=== PATIENT | female | born 1970 | race Caucasian/White ===

== ENCOUNTER 2020-05-30 10:12 | Emergency (ER) | payer OTHER, SELFPAY ==
[2020-05-30 10:19] VITALS: BP 115/68; PULSE 90; RESP 14; TEMP 36.6; O2SAT 98; BMI 20.2
[2020-05-30 10:49] LABS: Basophils Percent Auto 0.9 % (0-2); Eosinophils Absolute Auto 0.1 X10*3/uL (0.0-0.4); Hematocrit 34.5 % (37-47); Hemoglobin 12.1 g/dl (12.0-16.0); MANUAL DIFF FLAG NO; Mean Corpuscular HGB Conc 35.1 g/dl (31.0-35.0); Mean Corpuscular Hemoglobin 32.4 pg (27.0-33.0); Mean Corpuscular Volume 92.5 fL (80-98); Mean Platelet Volume 10.6 fL (9.4-12.3); Monocytes Absolute Auto 0.2 X10*3/uL (0.1-1.2); Monocytes Percent Auto 6.9 % (2-11); Neutrophils Absolute Auto 1.1 X10*3/uL (2.0-8.3); Neutrophils Percent Auto 31.2 % (45-73); Platelet Count 182 X10*3/uL (160-400); Red Blood Count 3.73 X10*6/uL (4.20-5.50); Red Cell Distribution Width 12.2 % (11.0-16.0); White Blood Count 3.5 X10*3/uL (4.8-10.8)
--- NOTE | 2020-05-30 10:51 | ED.CHESTPAIN ---
HPI - Chest Pain General Chief Complaint: Chest Pain Stated Complaint: chest pain Time Seen by Provider: 05/30/20 10:27 Source: patient Mode of arrival: ambulatory Limitations: no limitations History of Present Illness HPI narrative: 49-year-old female who presents emergency department for evaluation of sudden onset of chest pain. The patient states she was making breakfast this morning at 9:30 a.m. when she had a sudden onset of midsternal chest pain. She points to his sternum when asked to localize pain. She describes the pain as a constant heaviness/tightness which waxes and wanes in intensity. She states the pain was 9/10 at its worst. She denied shortness of breath, lightheadedness, dizziness, diaphoresis, nausea or vomiting associated with the chest pain. She denied dyspnea on exertion. She states the pain persisted and was getting worse before she came to the emergency department for evaluation. She denies any pain or swelling in her lower extremities. She denies any recent travel. She states that she takes a natural oral supplement called Estroven which is a herbal estrogen. She works at [employer] but does not have any known COVID exposures. She denied COVID symptoms such as fever, chills, myalgias, arthralgias, cough, diarrhea, loss of bowel or bladder control. Related Data Allergies Allergy/AdvReac Type Severity Reaction Status Date / Time amitriptyline [From ELAVIL] Allergy Unknown UNKNOWN Unverified 02/19/20 16:06 bupropion [From WELLBUTRIN] Allergy Unknown VISION Unverified 02/19/20 16:06 ISSUES clonidine Allergy Unknown DIFF Unverified 02/19/20 16:06 BREATHING cyclobenzaprine Allergy Unknown DRIES HER Unverified 02/19/20 16:06 [From FLEXERIL] OUT promethazine [From PHENERGAN] Allergy Unknown INVOLUNTARY Unverified 02/19/20 16:06 MOVEMENT topiramate [From TOPAMAX] Allergy Unknown ITCHINESS Unverified 02/19/20 16:06 trazodone [TRAZODONE] Allergy Unknown DRIES HER Unverified 02/19/20 16:06 OUT paroxetine AdvReac Unknown SEVERE Unverified 02/19/20 16:06 ANXIETY Review of Systems Review of Systems: Yes all other systems are reviewed and are negative Constitutional: Constitutional: Reports as per HPI Eyes: Eyes: Reports as per HPI ENT: Reports as per HPI Cardiovascular: Cardiovascular: Reports as per HPI Respiratory: Respiratory: Reports as per HPI Gastrointestinal: Gastrointestinal: Reports as per HPI Genitourinary: Genitourinary: Reports as per HPI Musculoskeletal: Musculoskeletal: Reports as per HPI Integumentary/Breasts: Skin/Breast: Reports as per HPI Neurologic: Reports as per HPI and Reports Abnormal speech present Psychiatric: Psychiatric: Reports as per HPI Allergic/Immunologic: Allergic/Immunologic: Reports as per HPI [facility] Past Medical History Attestation statement: The following information was validated with the patient. [facility] Narrative: The patient has a history of anxiety, Sjogren syndrome, arthritis, hyperlipidemia. The patient does smoke cigarettes 1/2 pack of cigarettes for greater than 35 years, she drinks alcohol occasionally. 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 Social History Social History Alcohol intake: never Smoking Status: Never smoker Use of substances other than those prescribed or required for medical reasons: No Advance Directives: No Advance Directives Information Provided: No Physical Exam Vital Signs: Vital Signs: Last Vital Signs Temp 98.3 F 05/30/20 16:10 Pulse 69 05/30/20 16:10 Resp 16 05/30/20 16:10 BP 110/62 05/30/20 16:10 Pulse Ox 99 05/30/20 16:10 Body Mass Index 20.2 Const: General: cooperative Nutritional Appearance: thin Orientation/consciousness: oriented to person and oriented to place Limitations: no limitations HENMT: Head: Yes normal to inspection, Yes normocephalic and Yes atraumatic Ears: external ears normal General nose exam: Normal external nose present Face and sinus: Yes normal facial exam Mouth: Normal oral and palatal mucosa present Throat: Yes posterior oropharynx normal Eyes: General: appearance normal, both eyes and all related structures Alignment and Position: alignment normal Periorbital: periorbital findings normal Eyelids: Yes eyelids normal Conjunctivae: conjunctivae normal Sclerae: sclerae normal Pupils: Equal, round and reactive pupils present Direct Ophthalmoscopy: normal light reflex Neck: Neck: Yes normal visual inspection and Yes supple Thyroid: Thyroid normal Chest: Chest palpation & inspection: normal inspection of the chest and normal palpation of entire chest wall Resp: Effort & Inspection: normal respiratory effort and able to speak in complete sentences Auscultation: clear to auscultation bilaterally, no crackles, no rales and no rhonchi Cardio: Rate: regular rate Rhythm: regular rhythm Heart sounds: S1 normal heart sound present, S2 normal heart sound present and no murmurs GI: Inspection: Yes normal to inspection Palpation (GI): Soft to palpation, nontender and no guarding Auscultation: normal bowel sounds : General: Yes no CVA tenderness Back/Spine/Pelvis: Back: no CVA tenderness Cervical Spine: normal cervical lordosis Thoracic/Lumbar Spine: thoracic and lumbar spine normal to inspection Skin: General skin exam: no rashes or lesions noted Lesions: no lesions Rashes: no rashes Trauma: no lacerations or abrasions Neuro: General: oriented to person and oriented to place Cranial nerves: Yes CN's II-XII intact bilaterally and Yes Equal, round and reactive pupils present Cognition (Neuro): normal cognition Speech: Abnormal speech present Motor exam (neuro): 5/5 motor strength present throughout Extrem: General: Yes normal to inspection Psych: Appearance: grossly normal and well kempt Mental Status: mental status grossly normal Speech and movement: Normal speech and movement present Affect: Other affect and mood findings present (Anxious) Attitude: cooperative Thought process: Normal thought process present Thought content: Normal thought content present Insight: Good insight present (Psych) Judgement: Good judgement present (Psych) Course Course Course Narrative: 49-year-old female with a history of hyperlipidemia, arthritis troponin syndrome and anxiety who presents emergency department for evaluation of sudden onset chest pain which started at 9:30 a.m.. The patient is taking an herbal estrogen supplement and does smoke cigarettes. The differential includes but is not limited to coronary artery disease, costochondritis, pulmonary embolism, COVID-19. I did order a cardiac workup to include troponin now and a 3 hour troponin, D-dimer and chest x-ray. Twelve lead EKG revealed no acute ischemia or myocardial injury pattern. 1622: The patient's laboratory evaluation revealed a normal D-dimer and normal initial and 3 hour troponin. Chest x-ray was unremarkable. The patient did get significant improvement with IV Toradol and IV Ativan. At this time I believe the patient's pain is consistent with costochondritis/pleuritic pain and I did discuss this with the patient. Patient will be discharged home and advised to take ibuprofen and Tylenol for pain. MDM - Chest Pain Lab Data Result diagrams: 05/30/20 10:42 05/30/20 13:23 Labs: Lab Results 05/30/20 05/30/20 05/30/20 Range/Units 10:41 10:42 10:42 WBC 3.5 L (4.8-10.8) X10*3/uL RBC 3.73 L (4.20-5.50) X10*6/uL Hgb 12.1 (12.0-16.0) g/dl Hct 34.5 L (37-47) % MCV 92.5 (80-98) fL MCH 32.4 (27.0-33.0) pg MCHC 35.1 H (31.0-35.0) g/dl RDW 12.2 (11.0-16.0) % Plt Count 182 (160-400) X10*3/uL MPV 10.6 (9.4-12.3) fL Immature Gran % (Auto) 0.0 (0.0-0.4) % Neut % (Auto) 31.2 L (45-73) % Lymph % (Auto) 57.0 H (20-40) % [place] % (Auto) 6.9 (2-11) % Eos % (Auto) 4.0 (0-4) % Baso % (Auto) 0.9 (0-2) % Lymph # (Auto) 2.0 (1.2-4.9) X10*3/uL [place] # (Auto) 0.2 (0.1-1.2) X10*3/uL Eos # (Auto) 0.1 (0.0-0.4) X10*3/uL Baso # (Auto) 0.0 (0.0-0.2) X10*3/uL Abs Immat Gran (auto) 0.00 (0.00-0.03) X10*3/uL Absolute Neuts (auto) 1.1 L (2.0-8.3) X10*3/uL Absolute Nucleated RBC 0.000 (0.0-0.012) X10*3/uL Nucleated RBC % (auto) 0.0 (0.0-0.2) /100WBC PT (10.8-13.0) SEC INR (0.9-1.1) APTT (24.1-38.0) SEC D-Dimer NG/ML Hold Blue Top SEE NOTE Sodium Potassium Chloride Carbon Dioxide Anion Gap BUN Creatinine Estim Creat Clear Calc Estimated GFR Random Glucose Calcium Total Bilirubin (0.0-1.0) mg/dL Direct Bilirubin (0.0-0.5) mg/dL AST (5-31) U/L ALT (0-31) U/L Alkaline Phosphatase (39-117) U/L Troponin I High Sens < 3.5 (<3.5-17.0) ng/L Total Protein (6.5-8.0) g/dL Albumin (3.5-5.0) g/dL COVID-19 (BILLIE) (Negative) COVID-19 Clin Com 05/30/20 05/30/20 05/30/20 Range/Units 10:42 13:23 13:23 WBC (4.8-10.8) X10*3/uL RBC (4.20-5.50) X10*6/uL Hgb (12.0-16.0) g/dl Hct (37-47) % MCV (80-98) fL MCH (27.0-33.0) pg MCHC (31.0-35.0) g/dl RDW (11.0-16.0) % Plt Count (160-400) X10*3/uL MPV (9.4-12.3) fL Immature Gran % (Auto) (0.0-0.4) % Neut % (Auto) (45-73) % Lymph % (Auto) (20-40) % Lar[place] % (Auto) (2-11) % Eos % (Auto) (0-4) % Baso % (Auto) (0-2) % Lymph # (Auto) (1.2-4.9) X10*3/uL [place] # (Auto) (0.1-1.2) X10*3/uL Eos # (Auto) (0.0-0.4) X10*3/uL Baso # (Auto) (0.0-0.2) X10*3/uL Abs Immat Gran (auto) (0.00-0.03) X10*3/uL Absolute Neuts (auto) (2.0-8.3) X10*3/uL Absolute Nucleated RBC (0.0-0.012) X10*3/uL Nucleated RBC % (auto) (0.0-0.2) /100WBC PT 12.4 (10.8-13.0) SEC INR 1.0 (0.9-1.1) APTT 36.8 (24.1-38.0) SEC D-Dimer < 200 NG/ML Hold Blue Top Sodium Cancelled Potassium Cancelled Chloride Cancelled Carbon Dioxide Cancelled Anion Gap Cancelled BUN Cancelled Creatinine Cancelled Estim Creat Clear Calc Cancelled Estimated GFR Cancelled Random Glucose Cancelled Calcium Cancelled Total Bilirubin (0.0-1.0) mg/dL Direct Bilirubin (0.0-0.5) mg/dL AST (5-31) U/L ALT (0-31) U/L Alkaline Phosphatase (39-117) U/L Troponin I High Sens (<3.5-17.0) ng/L Total Protein (6.5-8.0) g/dL Albumin (3.5-5.0) g/dL COVID-19 (BILLIE) Negative (Negative) COVID-19 Clin Com See Note 05/30/20 05/30/20 Range/Units 13:23 14:58 WBC (4.8-10.8) X10*3/uL RBC (4.20-5.50) X10*6/uL Hgb (12.0-16.0) g/dl Hct (37-47) % MCV (80-98) fL MCH (27.0-33.0) pg MCHC (31.0-35.0) g/dl RDW (11.0-16.0) % Plt Count (160-400) X10*3/uL MPV (9.4-12.3) fL Immature Gran % (Auto) (0.0-0.4) % Neut % (Auto) (45-73) % Lymph % (Auto) (20-40) % [place] % (Auto) (2-11) % Eos % (Auto) (0-4) % Baso % (Auto) (0-2) % Lymph # (Auto) (1.2-4.9) X10*3/uL [place] # (Auto) (0.1-1.2) X10*3/uL Eos # (Auto) (0.0-0.4) X10*3/uL Baso # (Auto) (0.0-0.2) X10*3/uL Abs Immat Gran (auto) (0.00-0.03) X10*3/uL Absolute Neuts (auto) (2.0-8.3) X10*3/uL Absolute Nucleated RBC (0.0-0.012) X10*3/uL Nucleated RBC % (auto) (0.0-0.2) /100WBC PT (10.8-13.0) SEC INR (0.9-1.1) APTT (24.1-38.0) SEC D-Dimer NG/ML Hold Blue Top Sodium 141 Potassium 4.7 Chloride 106 Carbon Dioxide 29 Anion Gap 11 L BUN 8 L Creatinine 0.76 Estim Creat Clear Calc 62.9 Estimated GFR > 60 Random Glucose 82 Calcium 8.6 Total Bilirubin 0.2 (0.0-1.0) mg/dL Direct Bilirubin < 0.2 (0.0-0.5) mg/dL AST 17 (5-31) U/L ALT 12 (0-31) U/L Alkaline Phosphatase 34 L (39-117) U/L Troponin I High Sens < 3.5 (<3.5-17.0) ng/L Total Protein 6.3 L (6.5-8.0) g/dL Albumin 3.9 (3.5-5.0) g/dL COVID-19 ([facility]IE) (Negative) COVID-19 Clin Com Discharge Plan Discharge Clinical Impression: Chest pain, Acute costochondritis Patient Disposition: Home, Self-Care Instructions: Costochondritis (ED) Additional Instructions: Your laboratory evaluation was normal. You chest x-ray was normal. Your pain is most likely caused by inflammation of the chest. This is called costochondritis. This is treated with anti-inflammatory medications such as ibuprofen. Take ibuprofen 200 mg pills, 3 pills every 6 hours as needed for pain. Take Tylenol (acetaminophen) 500 mg pills, 2 pills every 4 to 6 hours as needed for pain. Please return to the emergency department if her symptoms get worse or if you develop any new symptoms that are concerning to you. Follow-up with your doctor in 2 days. Referrals: Marie Ramires DO [Primary Care Provider] - 2 days
--- NOTE | 2020-05-30 11:03 | XR_ITS ---
EXAMINATION: XR CHEST CLINICAL INFORMATION: Sudden onset of shortness of breath COMPARISON: None TECHNIQUE: 2 views of the chest were obtained. FINDINGS: The lungs are well-expanded with slight prominence of bilateral interstitial markings but no confluent infiltrate upper effusion. The heart size and pulmonary vascularity is normal. No gross bony abnormality seen. XR/XR chest 2V IMPRESSION: Prominence of interstitial markings but no acute pneumonic process seen.
[2020-05-30 11:27] LABS: Troponin-I High Sensitivity < 3.5 ng/L (<3.5-17.0)
[2020-05-30] MEDS: LORazepam 2 MG/ML VIAL 0.5 MG IVPUSH (11:39)
[2020-05-30] MEDS: Ketorolac Tromethamine 15 MG/ML VIAL 30 MG IV (11:39)
[2020-05-30 13:25] VITALS: BP 118/71; PULSE 68; RESP 16; TEMP 36.6; O2SAT 100
[2020-05-30 13:40] LABS: Prothrombin Time 12.4 SEC (10.8-13.0)
[2020-05-30 13:43] LABS: Partial Thromboplastin Time 36.8 SEC (24.1-38.0)
[2020-05-30 13:47] LABS: D Dimer < 200 NG/ML
[2020-05-30 13:51] LABS: COVID-19 Test Negative (Negative); IDNOW Serial# 9DD0AD1C
[2020-05-30 14:00] LABS: Alanine Aminotransferase 12 U/L (0-31); Albumin Level 3.9 g/dL (3.5-5.0); Alkaline Phosphatase 34 U/L (39-117); Anion Gap 11 (12-20); Aspartate Amino Transferase 17 U/L (5-31); Bilirubin Direct < 0.2 mg/dL (0.0-0.5); Bilirubin Total 0.2 mg/dL (0.0-1.0); Blood Urea Nitrogen 8 mg/dL (9-16); Calcium 8.6 mg/dL (8.4-10.2); Carbon Dioxide 29 mmol/L (22-29); Chloride 106 mmol/L (96-108); Creatinine Clr Calc Pharmacy 62.9; Estimated Glomerular Filt Rate > 60; Glucose Random 82 mg/dL (60-115); Potassium 4.7 mmol/l (3.3-5.1); Sodium 141 mmol/L (135-145); Total Protein 6.3 g/dL (6.5-8.0)
[2020-05-30 15:40] LABS: Troponin-I High Sensitivity < 3.5 ng/L (<3.5-17.0)
[2020-05-30 16:10] VITALS: BP 110/62; PULSE 69; RESP 16; TEMP 36.8; O2SAT 99
--- NOTE | 2020-06-01 | ECG_ITS ---
Test Reason : CP Blood Pressure : / mmHG Vent. Rate : 079 BPM Atrial Rate : 079 BPM P-R Int : 106 ms QRS Dur : 082 ms QT Int : 356 ms P-R-T Axes : -10 092 054 degrees QTc Int : 408 ms Likely sinus but very subtle P waves Premature atrial complexes Rightward axis Borderline ECG When compared with ECG of 02-MAR-2020 23:14, Premature atrial complexes are now Present Referred By: Drew Abreu Electronically Signed By:ERINN MORRIS
== END 2020-05-30 16:31 | disposition home or self-care (01) ==
PROVIDERS: Emergency Provider Emergency Medicine Emergency Medical Services; PCP Internal Medicine
DX: R07.9 Chest pain, unspecified (principal); M94.0 Chondrocostal junction syndrome [Tietze]; Z79.899 Other long term (current) drug therapy; Z20.828 Contact with and (suspected) exposure to other viral communicable diseases
CPT/HCPCS: 36415; 71046; 80048; 80076; 84484; 85025; 85379; 85610; 85730; 87635; 93005; 96374; 96375; 99284; J1885; J2060

== ENCOUNTER 2020-08-14 12:28 | Emergency (ER) | payer OTHER, SELFPAY ==
--- NOTE | ~2020-08-14 | XR_ITS ---
EXAMINATION: XR CHEST CLINICAL INFORMATION: Chest pain. COMPARISON: Chest 05/30/2020 TECHNIQUE: 2 views of the chest were obtained. FINDINGS: The lungs are well-expanded with no acute pneumonic process.. There is minimal prominence of interstitium but no pleural effusion seen. The heart size and pulmonary vascularity is normal. No gross bony abnormality seen. XR/XR chest 2V IMPRESSION: Minimal prominence of interstitium but no acute process seen. No change from 05/30/2020.
--- NOTE | 2020-08-14 13:50 | ECG_ITS ---
Test Reason : CHEST PAIN Blood Pressure : / mmHG Vent. Rate : 078 BPM Atrial Rate : 078 BPM P-R Int : 104 ms QRS Dur : 078 ms QT Int : 368 ms P-R-T Axes : 031 087 070 degrees QTc Int : 419 ms Sinus rhythm with PACs in bigeminy pattern Otherwise normal ECG When compared with ECG of 30-MAY-2020 10:19, Premature atrial complexes Present Referred By: Perez Villagomez Electronically Signed By:Aaron Saldana
--- NOTE | 2020-08-14 13:50 | ED_ITS ---
HPI - SOB/Dyspnea General Chief Complaint: Dyspnea Stated Complaint: diff breathing Time Seen by Provider: 08/14/20 13:46 Source: patient Mode of arrival: ambulatory Limitations: no limitations History of Present Illness HPI Narrative: This is a 49-year-old female with past medical history that is significant for asthma, sjogren's disease and anxiety with prior pneumonia infection in June she presents ambulatory via triage with complaint of shortness of breath and upper back pain symptoms consistent with her prior pneumonia infection which she had in June states she was told that she was post to get a repeat x-ray to make sure resolved but she did not and she is worried about this. She otherwise denies any fever, states she was a former smoker and has a baseline cough there is no change from this. There is no lower extremity swelling, recent travel or sick contacts. MD elicited complaint: shortness of breath Pertinent past history: asthma Onset (ago): day(s) Timing: intermittent Severity: moderate Exacerbating factors: nothing Relieving factors: nothing Known history of: asthma Treatment prior to arrival: bronchodilator (Inhaler) Related Data Previous Rx's Medication Instructions Recorded naproxen 500 mg PO BID PRN #14 tab 08/14/20 prednisone 40 mg PO DAILY 5 Days #10 tab 08/14/20 Allergies Allergy/AdvReac Type Severity Reaction Status Date / Time amitriptyline [From ELAVIL] Allergy Unknown UNKNOWN Unverified 02/19/20 16:06 bupropion [From WELLBUTRIN] Allergy Unknown VISION Unverified 02/19/20 16:06 ISSUES clonidine Allergy Unknown DIFF Unverified 02/19/20 16:06 BREATHING cyclobenzaprine Allergy Unknown DRIES HER Unverified 02/19/20 16:06 [From FLEXERIL] OUT promethazine [From PHENERGAN] Allergy Unknown INVOLUNTARY Unverified 02/19/20 16:06 MOVEMENT topiramate [From TOPAMAX] Allergy Unknown ITCHINESS Unverified 02/19/20 16:06 trazodone [TRAZODONE] Allergy Unknown DRIES HER Unverified 02/19/20 16:06 OUT paroxetine AdvReac Unknown SEVERE Unverified 02/19/20 16:06 ANXIETY Review of Systems Review of Systems: Constitutional: No Weight loss, No Fever, No Chills, No Night Sweats, No Fatigue, No Malaise ENT/Mouth: No Hearing loss, No Ear Pain, No Nasal Congestion, No Sinus Pain, No Hoarseness, No sore throat, No Rhinorrhea, No Swallowing Difficulty Eyes: No Eye Pain, No Swelling, No Redness, No Foreign Body, No Discharge, No Vision Changes Cardiovascular: + Chest Pain, + SOB, No Dyspnea on Exertion, No Orthopnea, No Edema, No Palpitations Respiratory: + Cough, No Sputum, No Wheezing, No Smoke Exposure, No Dyspnea Gastrointestinal: No Nausea, No Vomiting, No Diarrhea, No Constipation, No abdominal Pain, No Hematochezia, No Melena Genitourinary: No Dysuria, No Urinary Frequency, No Hematuria, No Urinary Incont inence, No Urgency, No Flank Pain, No Urinary Flow Changes, No Hesitancy Musculoskeletal: No joint pain, No Myalgias, No Joint Swelling Skin: No Skin Lesions, No rash Neuro: No Weakness, No Numbness, No Paresthesias, No Loss of Consciousness, No Dizziness, No Headache Psych: No Social Issues Heme/Lymph: No Bruising, No Bleeding,No Lymphadenopathy Endocrine: No Polyuria, No Polydipsia, No Temperature Intolerance Yes all other systems are reviewed and are negative [facility] Past Medical History Medical History (Updated 08/14/20 @ 15:50 by Perez Villagomez NP) Anxiety Asthma Sjogren's syndrome Surgical History (Updated 08/14/20 @ 13:59 by Sade Worley) Tubal ligation status Social History Social History Alcohol intake: never Smoking Status: Never smoker Advance Directives: No Advance Directives Information Provided: Yes Physical Exam Vital Signs: Vital Signs: Last Vital Signs Temp 98.0 F 08/14/20 13:54 Pulse 87 08/14/20 13:54 Resp 20 08/14/20 13:54 BP 111/45 L 08/14/20 13:54 Pulse Ox 98 08/14/20 13:54 Body Mass Index 20.9 Reviewed She walked in to the ED bed 9 from the waiting room swiftly Const: Other: Anxious appearing General: anxious; No acute distress or intoxicated appearing Nutritional Appearance: average body habitus Orientation/consciousness: patient oriented x3 HENMT: Head: Yes normal to inspection Ears: hearing grossly normal bilaterally Eyes: General: appearance normal, both eyes and all related structures Visual Gibson: normal visual gibson by confrontation Neck: Neck: Yes normal visual inspection, No positive Brudzinski's sign, No positive Kernig's sign and No tender Thyroid: Thyroid normal Chest: Chest palpation & inspection: normal inspection of the chest Resp: Effort & Inspection: normal respiratory effort Auscultation: clear to auscultation bilaterally Cardio: Jugular venous distension: no JVD Rhythm: regular rhythm Heart sounds: S1 normal heart sound present and S2 normal heart sound present GI: Inspection: Yes normal to inspection Palpation (GI): Soft to palpation Percussion: Yes normal to percussion Auscultation: normal bowel sounds : General: Yes no CVA tenderness Back/Spine/Pelvis: Back: no CVA tenderness Skin: General skin exam: no rashes or lesions noted Neuro: General: patient oriented x3 Extrem: General: Yes normal to inspection Course Reevaluation(s) Reevaluation #1: Pulse ox 100 sent on room air lung sounds clear to auscultation she seems anxious type on exam. Plan for labs, chest x-ray, EKG and COVID test. Clinically in no acute distress, VSS. Reevaluation #2: Labs overall stable, no leukocytosis, D-dimer negative, electrolytes without significant derangement troponin negative, COVID negative, chest x-ray without acute disease. She has been resting comfortably with bedside drinking gi preet. Findings reviewed in detail with patient also some component of anxiety she does feel that way as well and is post be on lorazepam which she takes p.r.n. as needed prescribed to her by her psychiatrist. At this time no indication for antibiotics will give her short course of prednisone and she will try stress relieving techniques to reduce her anxiety and dietary approaches to this. 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 No SI or HI. She is thankful for her workup and verbalized understanding that for the need for follow-up. Stable for discharge. MDM - SOB/Dyspnea Lab Data Result diagrams: 08/14/20 14:25 08/14/20 14:25 Labs: Lab Results 08/14/20 08/14/20 08/14/20 Range/Units 14:25 14:25 14:25 WBC 5.3 (4.8-10.8) X10*3/uL RBC 3.77 L (4.20-5.50) X10*6/uL Hgb 12.3 (12.0-16.0) g/dl Hct 34.8 L (37-47) % MCV 92.3 (80-98) fL MCH 32.6 (27.0-33.0) pg MCHC 35.3 H (31.0-35.0) g/dl RDW 12.1 (11.0-16.0) % Plt Count 186 (160-400) X10*3/uL MPV 10.6 (9.4-12.3) fL Immature Gran % (Auto) 0.2 (0.0-0.4) % Neut % (Auto) 38.8 L (45-73) % Lymph % (Auto) 50.7 H (20-40) % [place] % (Auto) 6.2 (2-11) % Eos % (Auto) 3.2 (0-4) % Baso % (Auto) 0.9 (0-2) % Lymph # (Auto) 2.7 (1.2-4.9) X10*3/uL [place] # (Auto) 0.3 (0.1-1.2) X10*3/uL Eos # (Auto) 0.2 (0.0-0.4) X10*3/uL Baso # (Auto) 0.1 (0.0-0.2) X10*3/uL Abs Immat Gran (auto) 0.01 (0.00-0.03) X10*3/uL Absolute Neuts (auto) 2.1 (2.0-8.3) X10*3/uL Absolute Nucleated RBC 0.000 (0.0-0.012) X10*3/uL Nucleated RBC % (auto) 0.0 (0.0-0.2) /100WBC PT 13.0 (10.8-13.0) SEC INR 1.1 (0.9-1.1) APTT 38.2 H (24.1-38.0) SEC D-Dimer < 200 NG/ML Sodium 141 (135-145) mmol/L Potassium 4.0 (3.3-5.1) mmol/L Chloride 104 (96-108) mmol/L Carbon Dioxide 29 (22-29) mmol/L Anion Gap 12 (12-20) BUN 11 (9-16) mg/dL Creatinine 0.89 (0.5-1.4) mg/dL Estim Creat Clear Calc 53.6 Estimated GFR > 60 Random Glucose 107 (60-115) mg/dL Calcium 8.8 (8.4-10.2) mg/dL Total Bilirubin 0.6 (0.0-1.0) mg/dL AST 21 (5-31) U/L ALT 13 (0-31) U/L Alkaline Phosphatase 42 D (39-117) U/L Troponin I High Sens (<3.5-17.0) ng/L Total Protein 6.7 (6.5-8.0) g/dL Albumin 4.2 (3.5-5.0) g/dL Coronavirus (PCR) (Negative) Influenza Type A (PCR) (Negative) Influenza Type B (PCR) (Negative) RSV RNA Qual (PCR) (Negative) 08/14/20 08/14/20 Range/Units 14:25 14:25 WBC (4.8-10.8) X10*3/uL RBC (4.20-5.50) X10*6/uL Hgb (12.0-16.0) g/dl Hct (37-47) % MCV (80-98) fL MCH (27.0-33.0) pg MCHC (31.0-35.0) g/dl RDW (11.0-16.0) % Plt Count (160-400) X10*3/uL MPV (9.4-12.3) fL Immature Gran % (Auto) (0.0-0.4) % Neut % (Auto) (45-73) % Lymph % (Auto) (20-40) % [place] % (Auto) (2-11) % Eos % (Auto) (0-4) % Baso % (Auto) (0-2) % Lymph # (Auto) (1.2-4.9) X10*3/uL [place] # (Auto) (0.1-1.2) X10*3/uL Eos # (Auto) (0.0-0.4) X10*3/uL Baso # (Auto) (0.0-0.2) X10*3/uL Abs Immat Gran (auto) (0.00-0.03) X10*3/uL Absolute Neuts (auto) (2.0-8.3) X10*3/uL Absolute Nucleated RBC (0.0-0.012) X10*3/uL Nucleated RBC % (auto) (0.0-0.2) /100WBC PT (10.8-13.0) SEC INR (0.9-1.1) APTT (24.1-38.0) SEC D-Dimer NG/ML Sodium (135-145) mmol/L Potassium (3.3-5.1) mmol/L Chloride (96-108) mmol/L Carbon Dioxide (22-29) mmol/L Anion Gap (12-20) BUN (9-16) mg/dL Creatinine (0.5-1.4) mg/dL Estim Creat Clear Calc Estimated GFR Random Glucose (60-115) mg/dL Calcium (8.4-10.2) mg/dL Total Bilirubin (0.0-1.0) mg/dL AST (5-31) U/L ALT (0-31) U/L Alkaline Phosphatase (39-117) U/L Troponin I High Sens < 3.5 (<3.5-17.0) ng/L Total Protein (6.5-8.0) g/dL Albumin (3.5-5.0) g/dL Coronavirus (PCR) NEGATIVE (Negative) Influenza Type A (PCR) NEGATIVE (Negative) Influenza Type B (PCR) NEGATIVE (Negative) RSV RNA Qual (PCR) NEGATIVE (Negative) Imaging Data Chest x-ray: Radiologist's impression: [address] [id number] ReportSigned Patient: Aida RoblesMR#: [id number]: [id number]:[id number]/Sex: 49 / FADM Date: 08/14/20Loc: [facility] Ibrahim: Ordering Physician: Perez Villagomez NP Date of Service: 08/14/20 Procedure(s): XR chest 2V Accession Number(s): [id number] cc: Perez Villagomez [employer]CH FINISHER~ EXAMINATION: XR CHEST CLINICAL INFORMATION: Chest pain. COMPARISON: Chest 05/30/2020 TECHNIQUE: 2 views of the chest were obtained. FINDINGS: The lungs are well-expanded with no acute pneumonic process.. There is minimal prominence of interstitium but no pleural effusion seen. The heart size and pulmonary vascularity is normal. No gross bony abnormality seen. XR/XR chest 2V IMPRESSION: Minimal prominence of interstitium but no acute process seen. No change from 05/30/2020. Dictated By:HEMA SAWANT MDSigned By:<Electronically signed by HEMA SAWANT MD in OV>08/14/20 1424 DD/ 1350TD/TT: Municipal Engineer: JOHNNIE ECG Data Interpretation: Sinus rhythm with Blocked Premature atrial complexes Rate 78 Otherwise normal ECG When compared with ECG of 30-MAY-2020 10:19, No acute process Discharge Plan Discharge Clinical Impression: Anxiety Asthma with exacerbation Qualifiers: Asthma severity: unspecified severity Asthma persistence: unspecified Qualified Code(s): J45.901 - Unspecified asthma with (acute) exacerbation Patient Disposition: Home, Self-Care Instructions: Asthma (ED), Anxiolysis in Adults (ED) Additional Instructions: Your blood work was overall stable Your COVID test was negative Her chest x-ray did not show any evidence of acute pneumonia Your blood tests did not show any evidence of blood clot or elevated heart enzyme to suggest heart attack Drink plenty of fluids Taking medications as prescribed Stress relieving techniques as reviewed 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
[2020-08-14 13:54] VITALS: BP 111/45; PULSE 87; RESP 20; TEMP 36.7; O2SAT 98; BMI 20.9
[2020-08-14 14:31] LABS: MANUAL DIFF FLAG NO
[2020-08-14 14:34] LABS: Basophils Absolute Auto 0.1 X10*3/uL (0.0-0.2); Basophils Percent Auto 0.9 % (0-2); Eosinophils Absolute Auto 0.2 X10*3/uL (0.0-0.4); Eosinophils Percent Auto 3.2 % (0-4); Hematocrit 34.8 % (37-47); Hemoglobin 12.3 g/dl (12.0-16.0); Imm Gran Abs Auto 0.01 X10*3/uL (0.00-0.03); Imm Gran Pct Auto 0.2 % (0.0-0.4); Lymphocytes Absolute Auto 2.7 X10*3/uL (1.2-4.9); Lymphocytes Percent Auto 50.7 % (20-40); Mean Corpuscular HGB Conc 35.3 g/dl (31.0-35.0); Mean Corpuscular Hemoglobin 32.6 pg (27.0-33.0); Mean Corpuscular Volume 92.3 fL (80-98); Mean Platelet Volume 10.6 fL (9.4-12.3); Monocytes Absolute Auto 0.3 X10*3/uL (0.1-1.2); Monocytes Percent Auto 6.2 % (2-11); Neutrophils Absolute Auto 2.1 X10*3/uL (2.0-8.3); Neutrophils Percent Auto 38.8 % (45-73); Platelet Count 186 X10*3/uL (160-400); Red Blood Count 3.77 X10*6/uL (4.20-5.50); Red Cell Distribution Width 12.1 % (11.0-16.0); White Blood Count 5.3 X10*3/uL (4.8-10.8)
[2020-08-14 14:40] LABS: INTERNATIONAL NORM RATIO 1.1 (0.9-1.1)
[2020-08-14 14:42] LABS: Partial Thromboplastin Time 38.2 SEC (24.1-38.0)
[2020-08-14 14:44] LABS: D Dimer < 200 NG/ML
[2020-08-14 14:59] LABS: Alanine Aminotransferase 13 U/L (0-31); Albumin Level 4.2 g/dL (3.5-5.0); Alkaline Phosphatase 42 U/L (39-117); Anion Gap 12 (12-20); Aspartate Amino Transferase 21 U/L (5-31); Bilirubin Total 0.6 mg/dL (0.0-1.0); Blood Urea Nitrogen 11 mg/dL (9-16); Calcium 8.8 mg/dL (8.4-10.2); Carbon Dioxide 29 mmol/L (22-29); Chloride 104 mmol/L (96-108); Creatinine Clr Calc Pharmacy 53.6; Estimated Glomerular Filt Rate > 60; Glucose Random 107 mg/dL (60-115); Sodium 141 mmol/L (135-145); Total Protein 6.7 g/dL (6.5-8.0)
[2020-08-14 15:03] LABS: Troponin-I High Sensitivity < 3.5 ng/L (<3.5-17.0)
[2020-08-14 15:12] LABS: Influenza A PCR NEGATIVE (Negative); Influenza B PCR NEGATIVE (Negative); Resp Syncy Virus RNA Qual PCR NEGATIVE (Negative); SARS COV2 PCR INHOUSE NEGATIVE (Negative)
[2020-08-14 15:45] VITALS: BP 109/69; PULSE 81; RESP 16; TEMP 36.7; O2SAT 99
== END 2020-08-14 15:56 | disposition home or self-care (01) ==
PROVIDERS: Nurse Practitioner Primary Care; Emergency Provider Emergency Medicine; PCP Internal Medicine
DX: J45.901 Unspecified asthma with (acute) exacerbation (principal); F41.1 Generalized anxiety disorder; F43.0 Acute stress reaction; Z20.822 Contact with and (suspected) exposure to COVID-19; Z79.899 Other long term (current) drug therapy
CPT/HCPCS: 0241U; 36415; 71046; 80053; 84484; 85025; 85379; 85610; 85730; 93005; 99283

== ENCOUNTER 2020-12-06 11:05 | Emergency (ER) | payer OTHER, SELFPAY ==
--- NOTE | ~2020-12-06 | XR_ITS ---
EXAMINATION: XR CHEST CLINICAL INFORMATION: Fever COMPARISON: 08/14/2020. TECHNIQUE: AP upright view of the chest was obtained. FINDINGS: The cardiac and mediastinal silhouettes are normal in appearance. The lungs are normally expanded. Mild prominence of the pulmonary interstitium is unchanged. No consolidation or atelectasis. No acute osseous abnormalities. XR/XR chest 1V IMPRESSION: The lungs are clear.
--- NOTE | ~2020-12-06 | US_ITS ---
EXAMINATION: US RETROPERITONEAL LIMITED (RENAL ONLY) CLINICAL INFORMATION: Right-sided flank pain. Rule out obstruction.. COMPARISON: CT abdomen pelvis March 02, 2020 TECHNIQUE: Grayscale and color Doppler imaging was obtained of the bilateral kidneys. FINDINGS: RIGHT KIDNEY: 9.9 x 3.6 x 5.9 cm (SAG x AP x TRV). The kidney is normal in size, contour, and echogenicity. Renal cortical thickness is normal. No calculi or focal parenchymal lesions. No hydronephrosis. LEFT KIDNEY: 10.2 x 4.3 x 4.7 cm (SAG x AP x TRV). The kidney is normal in size, contour, and echogenicity. Renal cortical thickness is normal. No calculi or focal parenchymal lesions. No hydronephrosis. US/US renal BI IMPRESSION: No renal calculi or hydronephrosis of either kidney.
[2020-12-06 11:35] VITALS: BP 113/60; PULSE 96; RESP 16; TEMP 37.2; O2SAT 96; BMI 20.5
--- NOTE | 2020-12-06 11:42 | ED_ITS ---
HPI - Fever General Chief Complaint: Fever Stated Complaint: FEVER BACK PAIN CHILLS Time Seen by Provider: 12/06/20 11:37 Source: patient Mode of arrival: ambulatory Limitations: no limitations History of Present Illness HPI Narrative: 49-year-old otherwise healthy female came in for evaluation of fever and chills. Since last night patient been having subjective fever, and chills, with right flank pain. Patient for the last couple days been having increased urinary frequency but no dysuria. Patient decline coughing, no headache, no neck stiffness, no photophobia, otherwise no abdominal pain. Related Data Previous Rx's Medication Instructions Recorded naproxen 500 mg PO BID PRN #14 tab 08/14/20 prednisone 40 mg PO DAILY 5 Days #10 tab 08/14/20 cefuroxime axetil 500 mg PO BID #14 tab 12/06/20 Allergies Allergy/AdvReac Type Severity Reaction Status Date / Time amitriptyline [From ELAVIL] Allergy Unknown UNKNOWN Unverified 02/19/20 16:06 bupropion [From WELLBUTRIN] Allergy Unknown VISION Unverified 02/19/20 16:06 ISSUES clonidine Allergy Unknown DIFF Unverified 02/19/20 16:06 BREATHING cyclobenzaprine Allergy Unknown DRIES HER Unverified 02/19/20 16:06 [From FLEXERIL] OUT promethazine [From PHENERGAN] Allergy Unknown INVOLUNTARY Unverified 02/19/20 16:06 MOVEMENT topiramate [From TOPAMAX] Allergy Unknown ITCHINESS Unverified 02/19/20 16:06 trazodone [TRAZODONE] Allergy Unknown DRIES HER Unverified 02/19/20 16:06 OUT paroxetine AdvReac Unknown SEVERE Unverified 02/19/20 16:06 ANXIETY Review of Systems Review of Systems: All other systems are reviewed and are negative Constitutional: Reports as per HPI and Reports no additional constitutional complaints Eyes: Reports as per HPI and Reports no additional eye complaints Reports system reviewed and no additional complaints, except as documented Cardiovascular: Reports as per HPI and Reports no additional cardiovascular complaints Respiratory: Reports as per HPI and Reports no additional respiratory complaints Gastrointestinal: Reports as per HPI and Reports no additional gastrointestinal complaints Genitourinary: Reports no additional female genitourinary complaints Musculoskeletal: Reports no additional musculoskeletal complaints Skin/Breast: Reports system reviewed and no additional complaints, except as docu Psychiatric: Reports no additional psychiatric complaints Endocrine: Reports no additional endocrine complaints Hematologic/Lymphatic: Reports no additional hematologic/lymphatic complaints Allergic/Immunologic: Reports no additional allergic/immunologic complaints Reports system reviewed and no additional complaints, except as documented and Reports Abnormal speech present [facility] Past Medical History Medical History Anxiety Asthma Sjogren's syndrome Surgical History Tubal ligation status Social History Social History Alcohol intake: never Advance Directives: No Advance Directives Information Provided: Yes Patient : No Physical Exam Vital Signs: Vital Signs: Last Vital Signs Temp 98.9 F 12/06/20 11:35 Pulse 96 12/06/20 11:35 Resp 16 12/06/20 11:35 BP 113/60 12/06/20 11:35 Pulse Ox 96 12/06/20 11:35 Body Mass Index 20.5 vital signs have been reviewed as appeared to be correct. Blood pressure normal. Heart rate normal. Respiration rate normal. Temperature normal. Oxygen saturation normal. Appearance: Alert. Oriented X3. No acute distress. Head: Normal external exam. Normocephalic. Atraumatic. No Naqvi signs noted. No raccoon eyes noted Eyes: PERRLA. EOMI. Conjunctiva and sclera normal. Eyelids normal. ENT: TM's Normal. Pharynx normal. Uvula midline. Moist mucous membranes. No trismus noted. No drooling noted. No muffled voice noted. Neck: Normal inspection. Neck supple. FROM. No adenopathy. Thyroid Normal. No meningeal signs. No neck mass noted. CVS: Normal heart rate and rhythm. Heart sound normal. No murmurs noted. Pulses normal throughout. Respiratory: No respiratory distress. Painless inspiration. Breath sounds normal. No wheezes/rales/rhonchi noted. Chest nontender. No accessory muscle usage noted or decreased air movement noted. Abdomen: Soft and nontender. Bowel sounds normal in all 4 quadrants. No distention noted. No organomegaly noted. No visible injury noted. Back: Right moderate CVA tenderness. Full range of motion noted. Skin: Skin warm and dry. Normal skin color. Normal skin turgor. No rashes/lesions/lacerations noted. Extremities: No lower extremity edema. Extremities exhibit normal range of motion. Extremities nontender. Neuro: Oriented X 3. No motor deficit. No sensory deficit. Reflexes normal. Course Course Course Narrative: assessment and plan. 49-year-old female came in with subjective fever and chills with increased urinary frequency. Ultrasound showed no obstructive uropathy. Patient do not meet criteria for SIRS. Give the patient 1 dose of IV ceftriaxone and send her home on Ceftin twice a day for 7 days and follow-up with PCP with instruction to return to the emergency department if not feeling better. MDM - Fever Lab Data Attestation: I reviewed the patient's lab results. Result diagrams: 12/06/20 12:18 12/06/20 12:18 Labs: Lab Results 12/06/20 12/06/20 12/06/20 Range/Units 12:18 12:18 12:18 WBC 8.4 (4.8-10.8) X10*3/uL RBC 3.67 L (4.20-5.50) X10*6/uL Hgb 11.7 L (12.0-16.0) g/dl Hct 34.0 L (37-47) % MCV 92.6 (80-98) fL MCH 31.9 (27.0-33.0) pg MCHC 34.4 (31.0-35.0) g/dl RDW 12.8 (11.0-16.0) % Plt Count 164 (160-400) X10*3/uL MPV 10.8 (9.4-12.3) fL Immature Gran % (Auto) 0.4 (0.0-0.4) % Neut % (Auto) 71.4 (45-73) % Lymph % (Auto) 18.7 L (20-40) % [place] % (Auto) 8.3 (2-11) % Eos % (Auto) 0.8 (0-4) % Baso % (Auto) 0.4 (0-2) % Lymph # (Auto) 1.6 (1.2-4.9) X10*3/uL [place] # (Auto) 0.7 (0.1-1.2) X10*3/uL Eos # (Auto) 0.1 (0.0-0.4) X10*3/uL Baso # (Auto) 0.0 (0.0-0.2) X10*3/uL Abs Immat Gran (auto) 0.03 (0.00-0.03) X10*3/uL Absolute Neuts (auto) 6.0 (2.0-8.3) X10*3/uL Absolute Nucleated RBC 0.000 (0.0-0.012) X10*3/uL Nucleated RBC % (auto) 0.0 (0.0-0.2) /100WBC Sodium 138 (135-145) mmol/L Potassium 3.9 (3.3-5.1) mmol/L Chloride 106 (96-108) mmol/L Carbon Dioxide 23 (22-29) mmol/L Anion Gap 13 (12-20) BUN 9 (9-16) mg/dL Creatinine 0.82 (0.5-1.4) mg/dL Estim Creat Clear Calc 58.2 Estimated GFR > 60 Random Glucose 103 (60-115) mg/dL Lactic Acid 0.6 (0.5-2.0) mmol/L Calcium 8.8 (8.4-10.2) mg/dL Total Bilirubin 0.4 (0.0-1.0) mg/dL Direct Bilirubin 0.2 (0.0-0.5) mg/dL AST 14 (5-31) U/L ALT 8 (0-31) U/L Alkaline Phosphatase 40 (39-117) U/L Total Protein 6.6 (6.5-8.0) g/dL Albumin 4.0 (3.5-5.0) g/dL Lipase 21 (8-78) U/L Urine Color Urine Appearance Urine pH (5.0-8.0) Ur Specific [place] (1.005-1.025) Urine Protein (NEG-TRACE) MG/DL Urine Glucose (UA) (NEG) MG/DL Urine Ketones (NEG) MG/DL Urine Blood (NEG) Urine Nitrite (NEG) Ur Leukocyte Esterase (NEG) Urine RBC (0) /HPF Urine WBC (0-4) /HPF Ur Squamous Epith Cells /LPF Ur Renal Epithelial Cell /LPF Urine Bacteria /LPF Urine Mucus /LPF Urine Test (NEGATIVE) 12/06/20 12/06/20 Range/Units 12:33 12:33 WBC (4.8-10.8) X10*3/uL RBC (4.20-5.50) X10*6/uL Hgb (12.0-16.0) g/dl Hct (37-47) % MCV (80-98) fL MCH (27.0-33.0) pg MCHC (31.0-35.0) g/dl RDW (11.0-16.0) % Plt Count (160-400) X10*3/uL MPV (9.4-12.3) fL Immature Gran % (Auto) (0.0-0.4) % Neut % (Auto) (45-73) % Lymph % (Auto) (20-40) % [place] % (Auto) (2-11) % Eos % (Auto) (0-4) % Baso % (Auto) (0-2) % Lymph # (Auto) (1.2-4.9) X10*3/uL [place] # (Auto) (0.1-1.2) X10*3/uL Eos # (Auto) (0.0-0.4) X10*3/uL Baso # (Auto) (0.0-0.2) X10*3/uL Abs Immat Gran (auto) (0.00-0.03) X10*3/uL Absolute Neuts (auto) (2.0-8.3) X10*3/uL Absolute Nucleated RBC (0.0-0.012) X10*3/uL Nucleated RBC % (auto) (0.0-0.2) /100WBC Sodium (135-145) mmol/L Potassium (3.3-5.1) mmol/L Chloride (96-108) mmol/L Carbon Dioxide (22-29) mmol/L Anion Gap (12-20) BUN (9-16) mg/dL Creatinine (0.5-1.4) mg/dL Estim Creat Clear Calc Estimated GFR Random Glucose (60-115) mg/dL Lactic Acid (0.5-2.0) mmol/L Calcium (8.4-10.2) mg/dL Total Bilirubin (0.0-1.0) mg/dL Direct Bilirubin (0.0-0.5) mg/dL AST (5-31) U/L ALT (0-31) U/L Alkaline Phosphatase (39-117) U/L Total Protein (6.5-8.0) g/dL Albumin (3.5-5.0) g/dL Lipase (8-78) U/L Urine Color YELLOW Urine Appearance HAZY Urine pH 6.0 (5.0-8.0) Ur Specific [place] <= 1.005 (1.005-1.025) Urine Protein NEG (NEG-TRACE) MG/DL Urine Glucose (UA) NEG (NEG) MG/DL Urine Ketones NEG (NEG) MG/DL Urine Blood 3+ H (NEG) Urine Nitrite NEG (NEG) Ur Leukocyte Esterase 3+ H (NEG) Urine RBC 0-2 (0) /HPF Urine WBC 10-14 H (0-4) /HPF Ur Squamous Epith Cells TRACE /LPF Ur Renal Epithelial Cell TRACE /LPF Urine Bacteria TRACE /LPF Urine Mucus 1+ /LPF Urine Test NEGATIVE (NEGATIVE) Discharge Plan Discharge Clinical Impression: Pyelonephritis Patient Disposition: Home, Self-Care Instructions: Urinary Tract Infection in Women (ED) Prescriptions: New cefuroxime axetil 500 mg tablet 500 mg PO BID Qty: 14 RF: 0 No Action naproxen 500 mg tablet 500 mg PO BID PRN (Reason: pain) Qty: 14 RF: 0 prednisone 20 mg tablet 40 mg PO DAILY 5 Days Qty: 10 RF: 0 Referrals: Marie Ramires DO [Primary Care Provider] - 2 days
[2020-12-06 12:22] LABS: MANUAL DIFF FLAG NO
[2020-12-06 12:23] LABS: Basophils Percent Auto 0.4 % (0-2); Eosinophils Absolute Auto 0.1 X10*3/uL (0.0-0.4); Eosinophils Percent Auto 0.8 % (0-4); Hemoglobin 11.7 g/dl (12.0-16.0); Imm Gran Abs Auto 0.03 X10*3/uL (0.00-0.03); Imm Gran Pct Auto 0.4 % (0.0-0.4); Lymphocytes Absolute Auto 1.6 X10*3/uL (1.2-4.9); Lymphocytes Percent Auto 18.7 % (20-40); Mean Corpuscular HGB Conc 34.4 g/dl (31.0-35.0); Mean Corpuscular Hemoglobin 31.9 pg (27.0-33.0); Mean Corpuscular Volume 92.6 fL (80-98); Mean Platelet Volume 10.8 fL (9.4-12.3); Monocytes Absolute Auto 0.7 X10*3/uL (0.1-1.2); Monocytes Percent Auto 8.3 % (2-11); Neutrophils Percent Auto 71.4 % (45-73); Platelet Count 164 X10*3/uL (160-400); Red Blood Count 3.67 X10*6/uL (4.20-5.50); Red Cell Distribution Width 12.8 % (11.0-16.0); White Blood Count 8.4 X10*3/uL (4.8-10.8)
[2020-12-06 12:39] LABS: Lactic Acid 0.6 mmol/L (0.5-2.0)
[2020-12-06 12:50] LABS: Appearance Urine HAZY; Color Urine YELLOW; Glucose Urine UA NEG (NEG); Leukocyte Esterase Urine 3+ (NEG); Nitrite Urine NEG (NEG); Specific Gravity - Urine <= 1.005 (1.005-1.025); UACC Culture Trigger YES; Urine Blood 3+ (NEG); Urine Ketones NEG (NEG); Urine Protein NEG (NEG-TRACE)
[2020-12-06 12:51] LABS: UPreg QC Valid YES; Urine Pregnancy NEGATIVE (NEGATIVE)
[2020-12-06 12:55] LABS: Bacteria Urine TRACE /LPF; Mucus Urine 1+ /LPF; RBC Urine 0-2 /HPF (0); Renal Epithelial Cells Urine TRACE /LPF; Squamous Epithelial Cell Urine TRACE /LPF
[2020-12-06 12:58] LABS: Alanine Aminotransferase 8 U/L (0-31); Alkaline Phosphatase 40 U/L (39-117); Anion Gap 13 (12-20); Aspartate Amino Transferase 14 U/L (5-31); Bilirubin Direct 0.2 mg/dL (0.0-0.5); Bilirubin Total 0.4 mg/dL (0.0-1.0); Blood Urea Nitrogen 9 mg/dL (9-16); Calcium 8.8 mg/dL (8.4-10.2); Carbon Dioxide 23 mmol/L (22-29); Chloride 106 mmol/L (96-108); Creatinine Clr Calc Pharmacy 58.2; Estimated Glomerular Filt Rate > 60; Glucose Random 103 mg/dL (60-115); Lipase 21 U/L (8-78); Potassium 3.9 mmol/L (3.3-5.1); Sodium 138 mmol/L (135-145); Total Protein 6.6 g/dL (6.5-8.0)
[2020-12-06] MEDS: 0.9 % Sodium Chloride 1,000 ML 999 ML IVCONT (13:12)
[2020-12-06] MEDS: cefTRIAXone sodium 1 GM in 0.9 % Sodium Chloride 50 ML IV (13:34)
[2020-12-06] MEDS: Ketorolac Tromethamine 15 MG/ML VIAL IVPUSH (14:13)
== END 2020-12-06 14:52 | disposition home or self-care (01) ==
PROVIDERS: Emergency Provider Emergency Medicine; PCP Internal Medicine
DX: N12 Tubulo-interstitial nephritis, not specified as acute or chronic (principal); R50.9 Fever, unspecified
CPT/HCPCS: 36415; 71045; 76775; 80048; 80076; 81001; 81003; 81025; 83605; 83690; 85025; 87040; 87086; 87088; 87186; 96361; 96365; 96374; 99283; 99284; J0696; J1885

== ENCOUNTER 2020-12-16 14:11 | Emergency (ER) | payer OTHER, SELFPAY ==
--- NOTE | ~2020-12-16 | CT_ITS ---
EXAMINATION: CT ABDOMEN AND PELVIS WITHOUT CONTRAST CLINICAL INFORMATION: Flank pain. Recent urinary tract infection. Evaluate for pyelonephritis. COMPARISON: Previous CT of the abdomen and pelvis February 2020 and renal ultrasound December 2020 TECHNIQUE: Multidetector volumetric imaging was performed from the superior aspect of the liver through the pubic symphysis. Sagittal and coronal reformatted images were obtained on the technologist's workstation. This CT examination was performed using dose optimization techniques as appropriate, variously including the following: *Automated exposure control *Adjustment of mA and/or kV according to patient size (this includes techniques or standardized protocols for targeted exams where dose is matched to indication/reason for exam; i.e. extremities or head) *Use of iterative reconstruction technique DLP: 294 mGy-cm FINDINGS: LUNG BASES: The visualized lung bases are unremarkable. LIVER, GALLBLADDER, AND BILIARY TREE: The liver is normal in size, shape, and attenuation. No focal hepatic lesion or biliary ductal dilatation is present. The gallbladder is unremarkable with no evidence of radiopaque gallstones, gallbladder wall thickening, or obvious pericholecystic inflammatory changes. PANCREAS: Unremarkable. SPLEEN: Unremarkable. ADRENAL GLANDS: Unremarkable. KIDNEYS AND URETERS: The kidneys are normal in size, shape, and attenuation. No hydronephrosis, hydroureter, or calculi seen. No perinephric stranding. BLADDER: Unremarkable. GASTROINTESTINAL TRACT: The small and large bowel are unremarkable. The appendix is unremarkable. ABDOMINAL WALL: No significant hernia is appreciated. LYMPH NODES: Normal. VASCULAR: Unremarkable. PELVIC VISCERA: Unremarkable. OSSEOUS STRUCTURES: There are bilateral sacral stimulator leads. Bony structures are otherwise unremarkable. CT/CT abdomen pelvis wo con IMPRESSION: Normal-appearing kidneys on noncontrast enhanced CT scan. No stone, hydronephrosis or perinephric stranding seen.
[2020-12-16 14:19] VITALS: BP 126/80; PULSE 84; RESP 16; TEMP 36.8; O2SAT 99; BMI 20.5
[2020-12-16 18:35] LABS: Glucose Urine UA NEG (NEG); Leukocyte Esterase Urine NEG (NEG); Nitrite Urine NEG (NEG); PH 6.5 (5.0-8.0); Specific Gravity - Urine <= 1.005 (1.005-1.025); Urine Blood 2+ (NEG); Urine Ketones NEG (NEG); Urine Protein NEG (NEG-TRACE)
[2020-12-16 18:37] LABS: Appearance Urine CLEAR; Color Urine YELLOW
[2020-12-16 18:49] LABS: Bacteria Urine TRACE /LPF; Squamous Epithelial Cell Urine TRACE /LPF; WBC Urine 0-2 /HPF (0-4)
--- NOTE | 2020-12-16 19:18 | ED.FEMALEGU ---
HPI - Female Genitourinary General Chief complaint: Urogenital-Female Stated complaint: uti? Time Seen by Provider: 12/16/20 18:53 Source: patient Mode of arrival: ambulatory Limitations: no limitations History of Present Illness HPI Narrative: 49-year-old female with past medical history of asthma, Sjogren's, and anxiety presents with dysuria, subjective fevers and chills, and mouth sores. She was treated on 12/06/2020 for UTI with Ceftin, which she completed the entire course of antibiotics without incident. 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 She has had elevated fevers over the past few days. She does not report any chest pain or pressure, palpitations, shortness of breath, shortness of breath exertion, abdominal distention, hematuria, nausea, vomiting, diarrhea, constipation, or edema. MD elicited complaint: dysuria Pertinent past history: recurrent UTIs and pyelonephritis Onset (ago): day(s) Severity: moderate Severity scale (1-10): 6 Quality of pain: burning Consistency: intermittent Vaginal discharge: none Vaginal bleeding: none Urinary symptoms: Dysuria, Urgency and Frequency Exacerbating factors: urination Relieving factors: none Associated symptoms: other (Mouth ulcerations) Treatment prior to arrival: none Sexual activity: Yes Patient : No Related Data Previous Rx's Medication Instructions Recorded naproxen 500 mg PO BID PRN #14 tab 08/14/20 prednisone 40 mg PO DAILY 5 Days #10 tab 08/14/20 cefuroxime axetil 500 mg PO BID #14 tab 12/06/20 lidocaine HCl [Lidocaine Viscous] 10 ml MUCOUS MEMBRANE QID PRN #400 12/16/20 ml phenazopyridine [Pyridium] 200 mg PO TID PRN #6 tab 12/16/20 valacyclovir [Valtrex] 1,000 mg PO TID 7 Days #21 tab 12/16/20 Allergies Allergy/AdvReac Type Severity Reaction Status Date / Time amitriptyline [From ELAVIL] Allergy Unknown UNKNOWN Unverified 02/19/20 16:06 bupropion [From WELLBUTRIN] Allergy Unknown VISION Unverified 02/19/20 16:06 ISSUES clonidine Allergy Unknown DIFF Unverified 02/19/20 16:06 BREATHING cyclobenzaprine Allergy Unknown DRIES HER Unverified 02/19/20 16:06 [From FLEXERIL] OUT promethazine [From PHENERGAN] Allergy Unknown INVOLUNTARY Unverified 02/19/20 16:06 MOVEMENT topiramate [From TOPAMAX] Allergy Unknown ITCHINESS Unverified 02/19/20 16:06 trazodone [TRAZODONE] Allergy Unknown DRIES HER Unverified 02/19/20 16:06 OUT paroxetine AdvReac Unknown SEVERE Unverified 02/19/20 16:06 ANXIETY Review of Systems Review of Systems: Constitutional: Positive Fever, positive Chills ENT/Mouth: No Ear Pain, No Hoarseness, No sore throat Eyes: No Eye Pain, No Swelling, No Redness, No Foreign Body Cardiovascular: No Chest Pain, No SOB Respiratory: No Cough, No Dyspnea Gastrointestinal: Positive flank pain, No Nausea, No Vomiting, No Diarrhea, No abdominal Pain Genitourinary: Positive Dysuria, No Hematuria Musculoskeletal: No joint pain, No Myalgias, No Joint Swelling Skin: No Skin lacerations, No rash Neuro: No Weakness, No Numbness, No Paresthesias, No Loss of Consciousness, No Dizziness, No Headache Psych: No Anxiety/Panic, No Depression Heme/Lymph: no easy bruising, no Lymphadenopathy Endocrine: No Polyuria, No Polydipsia Yes all other systems are reviewed and are negative [facility] Past Medical History Attestation statement: The following information was validated with the patient. Source: old records reviewed Medical History Anxiety Asthma Sjogren's syndrome Surgical History Tubal ligation status Social History Social History Alcohol intake: never Advance Directives: No Advance Directives Information Provided: Yes Physical Exam Vital Signs: Vital Signs: Last Vital Signs Temp 98.4 F 12/16/20 20:00 Pulse 68 12/16/20 20:00 Resp 16 12/16/20 20:00 BP 128/72 12/16/20 20:00 Pulse Ox 98 12/16/20 20:00 Body Mass Index 20.5 Appearance: Alert. Oriented X3. No acute distress. Head: Normal external exam. Normocephalic. Atraumatic. No Naqvi signs noted. No raccoon eyes noted Eyes: PERRLA. EOMI. Conjunctiva and sclera normal. Eyelids normal. ENT: TM's Normal. Pharynx normal. Uvula midline. Moist mucous membranes. Neck: Normal inspection. Neck supple. No adenopathy. Thyroid Normal. No meningeal signs. No neck mass noted. CVS: Normal heart rate and rhythm. Heart sound normal. No murmurs noted. Pulses equal to all extremities. Respiratory: No respiratory distress. Painless inspiration. Breath sounds normal. No wheezes/rales/rhonchi noted. Chest nontender. No accessory muscle usage noted or decreased air movement noted. Abdomen: Soft and diffusely tender, positive CVA tenderness. Bowel sounds normal in all 4 quadrants. No distention noted. No organomegaly noted. No visible injury noted. Back: Full range of motion noted. Skin: Skin warm and dry. Normal skin color. Normal skin turgor. No rashes/lesions/lacerations noted. Extremities: No lower extremity edema. Extremities exhibit normal range of motion. Extremities nontender. Neuro: cranial nerves 2-12 intact, no focal neural deficits, strength 5/5 to all extremities, No motor deficit. No sensory deficit. Course Course Course Narrative: 49-year-old female presents for dysuria, mouth ulcerations, and subjective fevers and chills. Patient was seen on 12/06/2020 in the emergency department for UTI, treated with cefuroxime. Will order labs for sepsis workup although she does not appear toxic and is afebrile at this time. She does have a history of pyelonephritis. CT scan is negative for acute findings. Will treat for dysuria with Pyridium and give Valtrex for oral herpes outbreak. Patient verbalizes understanding of and agrees to plan of care discharge home. MDM - Female Genitourinary Differential Diagnosis Differential diagnosis: Likely urinary tract infection and cystitis Medical Records Attestation: I reviewed the patient's medical records. Lab Data Attestation: I reviewed the patient's lab results. Result diagrams: 12/16/20 19:48 12/16/20 19:48 Labs: Lab Results 12/16/20 12/16/20 12/16/20 Range/Units 18:28 19:48 19:48 WBC 5.7 (4.8-10.8) X10*3/uL RBC 4.00 L (4.20-5.50) X10*6/uL Hgb 12.6 (12.0-16.0) g/dl Hct 36.8 L (37-47) % MCV 92.0 (80-98) fL MCH 31.5 (27.0-33.0) pg MCHC 34.2 (31.0-35.0) g/dl RDW 12.4 (11.0-16.0) % Plt Count 318 D (160-400) X10*3/uL MPV 9.9 (9.4-12.3) fL Immature Gran % (Auto) 0.2 (0.0-0.4) % Neut % (Auto) 32.5 L (45-73) % Lymph % (Auto) 55.4 H (20-40) % [place] % (Auto) 7.0 (2-11) % Eos % (Auto) 4.0 (0-4) % Baso % (Auto) 0.9 (0-2) % Lymph # (Auto) 3.2 (1.2-4.9) X10*3/uL [place] # (Auto) 0.4 (0.1-1.2) X10*3/uL Eos # (Auto) 0.2 (0.0-0.4) X10*3/uL Baso # (Auto) 0.1 (0.0-0.2) X10*3/uL Abs Immat Gran (auto) 0.01 (0.00-0.03) X10*3/uL Absolute Neuts (auto) 1.9 L (2.0-8.3) X10*3/uL Absolute Nucleated RBC 0.000 (0.0-0.012) X10*3/uL Nucleated RBC % (auto) 0.0 (0.0-0.2) /100WBC Sodium 139 (135-145) mmol/L Potassium 4.2 (3.3-5.1) mmol/L Chloride 103 (96-108) mmol/L Carbon Dioxide 28 (22-29) mmol/L Anion Gap 12 (12-20) BUN 8 L (9-16) mg/dL Creatinine 0.94 (0.5-1.4) mg/dL Estim Creat Clear Calc 50.8 Estimated GFR > 60 Random Glucose 105 (60-115) mg/dL Lactic Acid (0.5-2.0) mmol/L Calcium 9.1 (8.4-10.2) mg/dL Urine Color YELLOW Urine Appearance CLEAR Urine pH 6.5 (5.0-8.0) Ur Specific [place] <= 1.005 (1.005-1.025) Urine Protein NEG (NEG-TRACE) MG/DL Urine Glucose (UA) NEG (NEG) MG/DL Urine Ketones NEG (NEG) MG/DL Urine Blood 2+ H (NEG) Urine Nitrite NEG (NEG) Ur Leukocyte Esterase NEG (NEG) Urine RBC 5-9 H (0) /HPF Urine WBC 0-2 (0-4) /HPF Ur Squamous Epith Cells TRACE /LPF Urine Bacteria TRACE /LPF 12/16/20 Range/Units 19:48 WBC (4.8-10.8) X10*3/uL RBC (4.20-5.50) X10*6/uL Hgb (12.0-16.0) g/dl Hct (37-47) % MCV (80-98) fL MCH (27.0-33.0) pg MCHC (31.0-35.0) g/dl RDW (11.0-16.0) % Plt Count (160-400) X10*3/uL MPV (9.4-12.3) fL Immature Gran % (Auto) (0.0-0.4) % Neut % (Auto) (45-73) % Lymph % (Auto) (20-40) % [place] % (Auto) (2-11) % Eos % (Auto) (0-4) % Baso % (Auto) (0-2) % Lymph # (Auto) (1.2-4.9) X10*3/uL [place] # (Auto) (0.1-1.2) X10*3/uL Eos # (Auto) (0.0-0.4) X10*3/uL Baso # (Auto) (0.0-0.2) X10*3/uL Abs Immat Gran (auto) (0.00-0.03) X10*3/uL Absolute Neuts (auto) (2.0-8.3) X10*3/uL Absolute Nucleated RBC (0.0-0.012) X10*3/uL Nucleated RBC % (auto) (0.0-0.2) /100WBC Sodium (135-145) mmol/L Potassium (3.3-5.1) mmol/L Chloride (96-108) mmol/L Carbon Dioxide (22-29) mmol/L Anion Gap (12-20) BUN (9-16) mg/dL Creatinine (0.5-1.4) mg/dL Estim Creat Clear Calc Estimated GFR Random Glucose (60-115) mg/dL Lactic Acid 1.0 (0.5-2.0) mmol/L Calcium (8.4-10.2) mg/dL Urine Color Urine Appearance Urine pH (5.0-8.0) Ur Specific [place] (1.005-1.025) Urine Protein (NEG-TRACE) MG/DL Urine Glucose (UA) (NEG) MG/DL Urine Ketones (NEG) MG/DL Urine Blood (NEG) Urine Nitrite (NEG) Ur Leukocyte Esterase (NEG) Urine RBC (0) /HPF Urine WBC (0-4) /HPF Ur Squamous Epith Cells /LPF Urine Bacteria /LPF Imaging Data CT scan - abdomen: Attestation: I personally reviewed and interpreted this imaging study as follows: Radiologist's impression: EXAMINATION: CT ABDOMEN AND PELVIS WITHOUT CONTRAST CLINICAL INFORMATION: Flank pain. Recent urinary tract infection. Evaluate for pyelonephritis. COMPARISON: Previous CT of the abdomen and pelvis February 2020 and renal ultrasound December 2020 TECHNIQUE: Multidetector volumetric imaging was performed from the superior aspect of the liver through the pubic symphysis. Sagittal and coronal reformatted images were obtained on the technologist's workstation. This CT examination was performed using dose optimization techniques as appropriate, variously including the following: *Automated exposure control *Adjustment of mA and/or kV according to patient size (this includes techniques or standardized protocols for targeted exams where dose is matched to indication/reason for exam; i.e. extremities or head) *Use of iterative reconstruction technique DLP: 294 mGy-cm FINDINGS: LUNG BASES: The visualized lung bases are unremarkable. LIVER, GALLBLADDER, AND BILIARY TREE: The liver is normal in size, shape, and attenuation. No focal hepatic lesion or biliary ductal dilatation is present. The gallbladder is unremarkable with no evidence of radiopaque gallstones, gallbladder wall thickening, or obvious pericholecystic inflammatory changes. PANCREAS: Unremarkable. SPLEEN: Unremarkable. ADRENAL GLANDS: Unremarkable. KIDNEYS AND URETERS: The kidneys are normal in size, shape, and attenuation. No hydronephrosis, hydroureter, or calculi seen. No perinephric stranding. BLADDER: Unremarkable. GASTROINTESTINAL TRACT: The small and large bowel are unremarkable. The appendix is unremarkable. ABDOMINAL WALL: No significant hernia is appreciated. LYMPH NODES: Normal. VASCULAR: Unremarkable. PELVIC VISCERA: Unremarkable. OSSEOUS STRUCTURES: There are bilateral sacral stimulator leads. Bony structures are otherwise unremarkable. CT/CT abdomen pelvis wo con IMPRESSION: Normal-appearing kidneys on noncontrast enhanced CT scan. No stone, hydronephrosis or perinephric stranding seen. Discharge Plan Discharge Clinical Impression: Dysuria, Cold sore, Oral herpes simplex infection Patient Disposition: Home, Self-Care Instructions: Oral Herpes Simplex Virus Infections (ED), Dysuria (ED) Additional Instructions: You were evaluated for multiple complaints. For dysuria and fevers, we did order CT scan of abdomen and pelvis which was negative for acute findings requiring emergent intervention. Your urinalysis was negative for bacteria. Your lab values were normal. We have prescribed Pyridium for bladder spasms and urgency. We have prescribed Valtrex for oral herpes simplex. Please take this medication as prescribed. I prescribed lidocaine swish and spit to help with pain for mouth ulcerations. Thank you for choosing this emergency department for evaluation. Please follow-up with primary care physician as needed. Return to the emergency department for any new, concerning, or worsening symptoms. Prescriptions: New phenazopyridine [Pyridium] 200 mg tablet 200 mg PO TID PRN (Reason: Dysuria) Qty: 6 RF: 0 valacyclovir [Valtrex] 1 gram tablet 1,000 mg PO TID 7 Days Qty: 21 RF: 0 lidocaine HCl [Lidocaine Viscous] 2 % solution 10 ml mucous membrane QID PRN (Reason: pain) Qty: 400 RF: 0 No Action naproxen 500 mg tablet 500 mg PO BID PRN (Reason: pain) Qty: 14 RF: 0 prednisone 20 mg tablet 40 mg PO DAILY 5 Days Qty: 10 RF: 0 cefuroxime axetil 500 mg tablet 500 mg PO BID Qty: 14 RF: 0 Stand Alone Forms: Work/School Release Interventions: ED Discharge Assessment Last Done: 12/16/20 21:54 Discharge Date/Time: 12/16/20 21:55
[2020-12-16] MEDS: 0.9 % Sodium Chloride 1,000 ML 999 ML IVCONT (19:48)
[2020-12-16 19:56] LABS: MANUAL DIFF FLAG NO
[2020-12-16 20:00] VITALS: BP 128/72; PULSE 68; RESP 16; TEMP 36.9; O2SAT 98
[2020-12-16 20:16] LABS: Anion Gap 12 (12-20); Basophils Absolute Auto 0.1 X10*3/uL (0.0-0.2); Basophils Percent Auto 0.9 % (0-2); Blood Urea Nitrogen 8 mg/dL (9-16); Calcium 9.1 mg/dL (8.4-10.2); Carbon Dioxide 28 mmol/L (22-29); Chloride 103 mmol/L (96-108); Creatinine Clr Calc Pharmacy 50.8; Eosinophils Absolute Auto 0.2 X10*3/uL (0.0-0.4); Estimated Glomerular Filt Rate > 60; Glucose Random 105 mg/dL (60-115); Hematocrit 36.8 % (37-47); Hemoglobin 12.6 g/dl (12.0-16.0); Imm Gran Abs Auto 0.01 X10*3/uL (0.00-0.03); Imm Gran Pct Auto 0.2 % (0.0-0.4); Lymphocytes Absolute Auto 3.2 X10*3/uL (1.2-4.9); Lymphocytes Percent Auto 55.4 % (20-40); Mean Corpuscular HGB Conc 34.2 g/dl (31.0-35.0); Mean Corpuscular Hemoglobin 31.5 pg (27.0-33.0); Mean Platelet Volume 9.9 fL (9.4-12.3); Monocytes Absolute Auto 0.4 X10*3/uL (0.1-1.2); Neutrophils Absolute Auto 1.9 X10*3/uL (2.0-8.3); Neutrophils Percent Auto 32.5 % (45-73); Platelet Count 318 X10*3/uL (160-400); Potassium 4.2 mmol/L (3.3-5.1); Red Cell Distribution Width 12.4 % (11.0-16.0); Sodium 139 mmol/L (135-145); White Blood Count 5.7 X10*3/uL (4.8-10.8)
[2020-12-16] MEDS: Lidocaine HCl Viscous 2 % 15 ML SOLUTION 10 ML MUCOUS MEM (20:50)
== END 2020-12-16 21:55 | disposition home or self-care (01) ==
PROVIDERS: Nurse Practitioner Family; Emergency Provider Internal Medicine
DX: R30.0 Dysuria (principal); B00.1 Herpesviral vesicular dermatitis
CPT/HCPCS: 36415; 74176; 80048; 81001; 83605; 85025; 87040; 96360; 99283; 99284

== ENCOUNTER 2022-02-14 15:03 | Outpatient (REF) | payer OTHER, SELFPAY ==
--- NOTE | ~2022-02-14 | XR_ITS ---
EXAMINATION: XR SACROILIAC JOINTS XR HIP, BILATERAL XR HAND, BILATERAL CLINICAL INFORMATION: Low back pain. Bilateral hip and bilateral hand pain. COMPARISON: CT pelvis 12/16/2020. TECHNIQUE: 3 views of the sacroiliac joints. AP and frog-lateral views of each hip. 3 views of each hand. FINDINGS: SACROILIAC JOINTS: Mild degenerative changes of the sacroiliac joints with subchondral sclerosis, better demonstrated on the CT. No erosions or ankylosis. HIPS: No joint space narrowing. No fracture. No focal osseous lesion or suspicious soft tissue calcification. HANDS: Bone mineralization is normal. No periarticular osteopenia, erosions, or suspicious soft tissue calcifications. Mild osteoarthritis of the distal interphalangeal joints which appear symmetric. No acute abnormality of either hand. XR/XR hand wrist LT IMPRESSION: SACROILIAC JOINTS: Minimal osteoarthritis. BILATERAL HIPS: Normal. BILATERAL HANDS: Minimal osteoarthritis in a distal distribution. No acute abnormalities or evidence of an inflammatory arthropathy.
--- NOTE | ~2022-02-14 | XR_ITS ---
EXAMINATION: XR SACROILIAC JOINTS XR HIP, BILATERAL XR HAND, BILATERAL CLINICAL INFORMATION: Low back pain. Bilateral hip and bilateral hand pain. COMPARISON: CT pelvis 12/16/2020. TECHNIQUE: 3 views of the sacroiliac joints. AP and frog-lateral views of each hip. 3 views of each hand. FINDINGS: SACROILIAC JOINTS: Mild degenerative changes of the sacroiliac joints with subchondral sclerosis, better demonstrated on the CT. No erosions or ankylosis. HIPS: No joint space narrowing. No fracture. No focal osseous lesion or suspicious soft tissue calcification. HANDS: Bone mineralization is normal. No periarticular osteopenia, erosions, or suspicious soft tissue calcifications. Mild osteoarthritis of the distal interphalangeal joints which appear symmetric. No acute abnormality of either hand. XR/XR sacroiliac joint min 3V IMPRESSION: SACROILIAC JOINTS: Minimal osteoarthritis. BILATERAL HIPS: Normal. BILATERAL HANDS: Minimal osteoarthritis in a distal distribution. No acute abnormalities or evidence of an inflammatory arthropathy.
--- NOTE | ~2022-02-14 | XR_ITS ---
EXAMINATION: XR SACROILIAC JOINTS XR HIP, BILATERAL XR HAND, BILATERAL CLINICAL INFORMATION: Low back pain. Bilateral hip and bilateral hand pain. COMPARISON: CT pelvis 12/16/2020. TECHNIQUE: 3 views of the sacroiliac joints. AP and frog-lateral views of each hip. 3 views of each hand. FINDINGS: SACROILIAC JOINTS: Mild degenerative changes of the sacroiliac joints with subchondral sclerosis, better demonstrated on the CT. No erosions or ankylosis. HIPS: No joint space narrowing. No fracture. No focal osseous lesion or suspicious soft tissue calcification. HANDS: Bone mineralization is normal. No periarticular osteopenia, erosions, or suspicious soft tissue calcifications. Mild osteoarthritis of the distal interphalangeal joints which appear symmetric. No acute abnormality of either hand. XR/XR hip LT min 2V IMPRESSION: SACROILIAC JOINTS: Minimal osteoarthritis. BILATERAL HIPS: Normal. BILATERAL HANDS: Minimal osteoarthritis in a distal distribution. No acute abnormalities or evidence of an inflammatory arthropathy.
--- NOTE | ~2022-02-14 | XR_ITS ---
EXAMINATION: XR SACROILIAC JOINTS XR HIP, BILATERAL XR HAND, BILATERAL CLINICAL INFORMATION: Low back pain. Bilateral hip and bilateral hand pain. COMPARISON: CT pelvis 12/16/2020. TECHNIQUE: 3 views of the sacroiliac joints. AP and frog-lateral views of each hip. 3 views of each hand. FINDINGS: SACROILIAC JOINTS: Mild degenerative changes of the sacroiliac joints with subchondral sclerosis, better demonstrated on the CT. No erosions or ankylosis. HIPS: No joint space narrowing. No fracture. No focal osseous lesion or suspicious soft tissue calcification. HANDS: Bone mineralization is normal. No periarticular osteopenia, erosions, or suspicious soft tissue calcifications. Mild osteoarthritis of the distal interphalangeal joints which appear symmetric. No acute abnormality of either hand. XR/XR hand wrist RT IMPRESSION: SACROILIAC JOINTS: Minimal osteoarthritis. BILATERAL HIPS: Normal. BILATERAL HANDS: Minimal osteoarthritis in a distal distribution. No acute abnormalities or evidence of an inflammatory arthropathy.
--- NOTE | ~2022-02-14 | XR_ITS ---
EXAMINATION: XR SACROILIAC JOINTS XR HIP, BILATERAL XR HAND, BILATERAL CLINICAL INFORMATION: Low back pain. Bilateral hip and bilateral hand pain. COMPARISON: CT pelvis 12/16/2020. TECHNIQUE: 3 views of the sacroiliac joints. AP and frog-lateral views of each hip. 3 views of each hand. FINDINGS: SACROILIAC JOINTS: Mild degenerative changes of the sacroiliac joints with subchondral sclerosis, better demonstrated on the CT. No erosions or ankylosis. HIPS: No joint space narrowing. No fracture. No focal osseous lesion or suspicious soft tissue calcification. HANDS: Bone mineralization is normal. No periarticular osteopenia, erosions, or suspicious soft tissue calcifications. Mild osteoarthritis of the distal interphalangeal joints which appear symmetric. No acute abnormality of either hand. XR/XR hip RT min 2V IMPRESSION: SACROILIAC JOINTS: Minimal osteoarthritis. BILATERAL HIPS: Normal. BILATERAL HANDS: Minimal osteoarthritis in a distal distribution. No acute abnormalities or evidence of an inflammatory arthropathy.
[2022-02-14 15:36] LABS: MANUAL DIFF FLAG NO
[2022-02-14 17:26] LABS: Basophils Percent Auto 0.6 % (0-2); Eosinophils Absolute Auto 0.2 X10*3/uL (0.0-0.4); Eosinophils Percent Auto 3.5 % (0-4); Hematocrit 32.6 % (37.0-47.0); Hemoglobin 11.2 g/dl (12.0-16.0); Imm Gran Abs Auto 0.01 X10*3/uL (0.00-0.03); Imm Gran Pct Auto 0.2 % (0.0-0.4); Lymphocytes Absolute Auto 2.2 X10*3/uL (1.2-4.9); Lymphocytes Percent Auto 41.6 % (20-40); Mean Corpuscular HGB Conc 34.4 g/dl (31.0-35.0); Mean Corpuscular Volume 96.2 fL (80.0-98.0); Mean Platelet Volume 10.9 fL (9.4-12.3); Monocytes Absolute Auto 0.3 X10*3/uL (0.1-1.2); Monocytes Percent Auto 5.9 % (2-11); Neutrophils Absolute Auto 2.6 x10*3/uL (2.0-8.3); Neutrophils Percent Auto 48.2 % (45-73); Platelet Count 180 X10*3/uL (160-400); Red Blood Count 3.39 X10*6/uL (4.20-5.50); Red Cell Distribution Width 12.4 % (11.0-16.0); White Blood Count 5.4 X10*3/uL (4.8-10.8)
[2022-02-14 17:43] LABS: Alanine Aminotransferase 12 U/L (0-31); Albumin Level 4.1 g/dL (3.5-5.0); Alkaline Phosphatase 36 U/L (39-117); Anion Gap 15 (12-20); Aspartate Amino Transferase 18 U/L (5-31); Bilirubin Total < 0.2 mg/dL (0.0-1.0); Blood Urea Nitrogen 13 mg/dL (9-16); Calcium 8.7 mg/dL (8.4-10.2); Carbon Dioxide 26 mmol/L (22-29); Chloride 103 mmol/L (96-108); Estimated Glomerular Filt Rate > 60; Glucose Random 87 mg/dL (60-115); Potassium 4.7 mmol/L (3.3-5.1); Rheumatoid Factor < 15.0 IU/mL (<15.0); Sodium 139 mmol/L (135-145); Total Protein 6.6 g/dL (6.5-8.0)
[2022-02-14 17:52] LABS: Appearance Urine Clear; Color Urine Yellow; Glucose Urine UA Negative (Negative); Leukocyte Esterase Urine Negative (Negative); Nitrite Urine Negative (Negative); PH 6.5 (5.0-9.0); UMIC TRIGGER UA YES; Urine Blood Moderate (2+) (Negative); Urine Ketones Trace mg/dL (Negative); Urine Protein Negative (Neg-Trace)
[2022-02-14 17:55] LABS: Bacteria Urine Trace (None Seen); Hyaline Casts Urine 0-2 /LPF (0-2); RBC Urine >20 /HPF (0-2); WBC Urine 0-5 /HPF (0-5)
[2022-02-14 18:10] LABS: Erythrocyte Sedimentation Rate 5 MM/HR (0-20)
[2022-02-14 18:37] LABS: Creatinine Urine 144.44 mg/dL; Total Protein Urine Random < 7 mg/dL (<12)
[2022-02-16 15:46] LABS: Complement C3 93 mg/dL (83-193)
[2022-02-17 17:46] LABS: Cyclic Citrullinated Peptide <16 UNITS
[2022-02-17 21:22] LABS: Prot Elec - Albumin 3.6 g/dL (3.8-4.8); Prot Elec - Alpha1 0.3 g/dL (0.2-0.3); Prot Elec - Alpha2 0.9 g/dL (0.5-0.9); Prot Elec - Beta 1 0.5 g/dL (0.4-0.6); Prot Elec - Beta 2 0.2 g/dL (0.2-0.5); Prot Elec - Gamma 0.9 g/dL (0.8-1.7); Prot Elec - Total Protein 6.5 g/dL (6.1-8.1)
[2022-02-17 22:53] LABS: Anti DNA DS Antibody <1 IU/mL; Antibody to SS-A Antigen <1.0 NEG AI (<1.0 NEG); Antibody to SS-B Antigen <1.0 NEG AI (<1.0 NEG); SM/Ribonucleoprotein Ab <1.0 NEG AI (<1.0 NEG); Smith Protein <1.0 NEG AI (<1.0 NEG)
[2022-02-18 12:21] LABS: HLA B27 Negative (Negative)
[2022-02-21 13:42] LABS: IgA 87 mg/dL (47-310); IgG 950 mg/dL (600-1640); IgM 75 mg/dL (50-300)
[2022-02-21 15:12] LABS: Anti Nuclear Antibody Screen POSITIVE (NEGATIVE)
== END 2022-02-14 15:04 | disposition home or self-care (01) ==
LOC: HO.LAB 15:03
PROVIDERS: PCP Internal Medicine; Visit Provider Student in an Organized Health Care Education/Training Program
DX: M54.50 Low back pain, unspecified (principal); M25.552 Pain in left hip; M25.551 Pain in right hip; M25.542 Pain in joints of left hand; M25.541 Pain in joints of right hand; M35.01 Sjogren syndrome with keratoconjunctivitis
CPT/HCPCS: 36415; 72202; 73110; 73130; 73502; 80053; 81001; 82784; 84156; 84165; 85025; 85652; 86038; 86039; 86140; 86160; 86200; 86225; 86235; 86334; 86431; 86812; 99212

== ENCOUNTER → 2022-06-06 08:50 | Outpatient (BNVA) | payer OTHER, SELFPAY | PROVIDERS: PCP Internal Medicine; Visit Provider Internal Medicine Rheumatology | DX: M35.01 Sjogren syndrome with keratoconjunctivitis (principal); M25.551 Pain in right hip; R49.0 Dysphonia; F17.210 Nicotine dependence, cigarettes, uncomplicated | CPT/HCPCS: 99212 ==

== ENCOUNTER 2022-06-13 08:45 | Outpatient (REF) | payer OTHER, SELFPAY ==
--- NOTE | ~2022-06-13 | CT_ITS ---
EXAMINATION: CT ABDOMEN AND PELVIS WITHOUT CONTRAST CLINICAL INFORMATION: Right lower quadrant pain. Rule out stone COMPARISON: 12/16/2020 TECHNIQUE: Multidetector volumetric imaging was performed from the lung bases through the pubic symphysis. Sagittal and coronal reformatted images were obtained on the technologist workstation. This CT examination was performed using dose optimization techniques as appropriate, variously including the following: *Automated exposure control *Adjustment of mA and/or kV according to patient size (this includes techniques or standardized protocols for targeted exams where dose is matched to indication/reason for exam; i.e. extremities or head) *Use of iterative reconstruction technique FINDINGS: The lack of intravenous contrast limits evaluation of the solid visceral organs including the liver, spleen, pancreas, and kidneys. LUNG BASES: The visualized lung bases are unremarkable. LIVER, GALLBLADDER, AND BILIARY TREE: Limited non-contrast evaluation is normal. No gross focal hepatic lesion. Normal liver size and contour. No gross biliary ductal dilation. The gallbladder is unremarkable with no evidence of radiopaque gallstones, gallbladder wall thickening, or obvious pericholecystic inflammatory changes. PANCREAS: Limited non-contrast evaluation is normal. No ana-pancreatic fluid. SPLEEN: Limited non-contrast evaluation is normal. ADRENAL GLANDS: Normal; no adrenal mass. KIDNEYS AND URETERS: Limited non-contrast evaluation is normal. No hydronephrosis, hydroureter, or calculi seen. No perinephric stranding. GASTROINTESTINAL TRACT: Small bowel and colon are non-dilated. No bowel wall thickening. No pericolonic inflammatory changes to suggest colitis or diverticulitis. ABDOMINAL WALL: No hernia seen. LYMPH NODES: No pathologically enlarged lymph nodes in the abdomen or pelvis. VASCULAR: Normal caliber abdominal aorta. BLADDER: Unremarkable. PELVIC VISCERA: Normal noncontrast appearance of the uterus and ovaries. OSSEOUS STRUCTURES: Bilateral sacral nerve stimulators are present. Generator pack in the left buttock. CT/CT abdomen pelvis wo IV con IMPRESSION: No acute CT findings. No radiopaque urolithiasis.
== END 2022-06-13 08:46 | disposition home or self-care (01) ==
LOC: HO.CT 08:45
PROVIDERS: PCP Internal Medicine; Visit Provider Student in an Organized Health Care Education/Training Program
DX: R10.31 Right lower quadrant pain (principal)
CPT/HCPCS: 74176

== ENCOUNTER → 2022-08-15 10:42 | Outpatient (REF) | payer OTHER, SELFPAY ==
--- NOTE | ~2022-08-15 | NM_ITS ---
EXAMINATION: THREE PHASE BONE SCAN CLINICAL INFORMATION: Right lower quadrant and right groin pain. Question occult fracture or avascular necrosis.. COMPARISON: No previous bone scan is available for comparison. The diagnostic CT scan of the abdomen and pelvis, dated 06/13/2022, is available for comparison.. Radiographs of the sacroiliac joints and bilateral hips are available for comparison. TECHNIQUE: Initial rapid sequence images were obtained over the the pelvis and proximal femurs in the anterior and posterior projections during the bolus injection of 18 mCi Tc-99m MDP. Static images of the midthoracic spine to the proximal femoral shafts in multiple projections were then obtained 2.5 hours post injection. FINDINGS: Initial rapid sequence images show bilaterally symmetrical flow to the pelvis, hips, and proximal femurs. The visualized vascular flow is bilaterally symmetrical. Blood pool images obtained immediately following the flow study show no foci of abnormally increased or decreased blood pool activity. The delayed static images show no foci of abnormally increased activity present at any site. In particular the lumbosacral spine, pelvis, and both hips appear unremarkable.. The urinary bladder and faint visualization of both kidneys are noted. NM/NM bone 3 phase IMPRESSION: Normal three-phase bone scan of the pelvis, hips, and proximal femurs. No abnormalities are present at any visualized site..
== END ==
LOC: HO.NUCMED 10:42
PROVIDERS: PCP Internal Medicine; Visit Provider Internal Medicine Rheumatology
DX: R10.31 Right lower quadrant pain (principal)
CPT/HCPCS: 78315; A9503

== ENCOUNTER → 2022-09-07 09:55 | Outpatient (BNVA) | payer OTHER, SELFPAY | PROVIDERS: PCP Internal Medicine; Visit Provider Internal Medicine Rheumatology | DX: M25.511 Pain in right shoulder (principal); M75.81 Other shoulder lesions, right shoulder | CPT/HCPCS: 99212 ==

== ENCOUNTER 2023-04-02 11:21 | Outpatient (AMB) | payer OTHER, SELFPAY ==
[2023-04-02 11:34] VITALS: BP 92/64; PULSE 76; TEMP 36.3; O2SAT 96; BMI 21.9
--- NOTE | 2023-04-02 11:34 | MHC.OFFVIS ---
Intake Vital Signs 04/02/23 11:34 Height 5 ft Weight 111 lb 15.917 oz BMI 21.9 BP 92/64 Blood Pressure Location Lt brachial Position Sitting Pulse 76 Pulse Source Pulse Oximeter Temp 97.3 F Temp Source Skin Pulse Oximetry (%) 96 Oxygen Delivery Method Room Air Intake Visit Reasons: Hip pain Intake Note: Patient presents today to follow up on hip pain. 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 Accompanied by: Self / Same As Patient Allergies amitriptyline [From ELAVIL] Allergy (Unknown, Verified 04/02/23 11:36) UNKNOWN bupropion [From WELLBUTRIN] Allergy (Unknown, Verified 04/02/23 11:36) VISION ISSUES clonidine Allergy (Unknown, Verified 04/02/23 11:36) DIFF BREATHING cyclobenzaprine [From FLEXERIL] Allergy (Unknown, Verified 04/02/23 11:36) DRIES HER OUT promethazine [From PHENERGAN] Allergy (Unknown, Verified 04/02/23 11:36) INVOLUNTARY MOVEMENT topiramate [From TOPAMAX] Allergy (Unknown, Verified 04/02/23 11:36) ITCHINESS trazodone [TRAZODONE] Allergy (Unknown, Verified 04/02/23 11:36) DRIES HER OUT paroxetine Adverse Reaction (Unknown, Verified 04/02/23 11:36) SEVERE ANXIETY Medication List - Last Reconciled 04/02/23 by Aftab Burciaga MD albuterol sulfate 90 mcg/actuation 2 puffs inhalation Q4H PRN buprenorphine-naloxone 12-3 mg 15 mg sublingual DAILY buspirone 5 mg PO BID cholecalciferol (vitamin D3) 25 mcg PO DAILY ciclopirox 8% mL topical DAILY citalopram 10 mg PO QAM cyclosporine 0.05% (Restasis) 1 drp ophthalmic (eye) BID diclofenac sodium 1% 2 grams topical BID PRN divalproex 250mg QAM 500mg QPM orally daily; docusate sodium 100 mg PO DAILY gabapentin 300 mg PO BID ketoconazole 2% appl topical lidocaine HCl 2% (Lidocaine Viscous) 10 mL mucous membrane QID PRN mirtazapine 15 mg PO BEDTIME nicotine 1 patch topical DAILY omeprazole 40 mg PO DAILY pilocarpine HCl 5 mg PO BID sucralfate 1 g PO QID umeclidinium-vilanterol 62.5-25 mcg/actuation (Anoro Ellipta) 1 ea inhalation DAILY valacyclovir (Valtrex) 1,000 mg PO TID 7 days HPI HPI Comments History of Present Illness Details The patient presents for evaluation of knee pain and right shoulder pain. In the past she had some left groin pain but that eventually has subsided although she is left with some lateral hip pain on the left. That is worse with lying on the hip. She notes the knee pains occasionally with stairs. They are not always painful. She has not seen any swelling. Occasionally there is pain at night in the knees, mostly anteriorly. The right shoulder had been a issue before. I had sent her for physical therapy but she never got to be seen. She says it is improving to some degree. She does take acetaminophen for symptoms. She stays away from NSAIDs because of history of GERD. She is also on pilocarpine at 5 mg twice a day for dry mouth which is helpful. She also takes multiple medications for anxiety and depression. Those issues seem to be stable for now. 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 [facility] Medical History (Updated 04/02/23 @ 12:51 by Aftab Burciaga MD) IBS (irritable colon syndrome) Obstructive sleep apnea COPD (chronic obstructive pulmonary disease) Gastritis Anxiety Sjogren's syndrome Asthma Surgical History (Updated 04/02/23 @ 11:39 by TAMIKA Atwood) History of surgery Hx of tubal ligation Family History Family/Other Arthritis Social History (Updated 04/02/23 @ 11:37 by TAMIKA Atwood) Household Members: Significant Other Alcohol intake: current Alcohol intake frequency: a few times a month Patient Tobacco Use Status: Current everyday Tobacco user Tobacco use type: Cigarette Cigarettes Per Day: 5 Current occupational status: employed 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 She has been told she has venous insufficiency and uses compression stockings which are helpful with relieving some of her symptoms. Negative chest pain and syncope Resp Details: Negative for SOB, cough and wheezing GI Details: Heartburn controlled with current medications. Negative indigestion/heartburn, nausea, abdominal pain, bowel changes, diarrhea, constipation and bloody stool. Neuro Details: Numbness in the feet, she was told she had a neuropathy. Negative for epilepsy, palsy, stroke, changes in speech, and weakness Cody/Lymph Details: Negative for excessive bruising or bleeding. Physical Exam Vital Signs: Last Vital Signs Temp 97.3 F 04/02/23 11:34 Pulse 76 04/02/23 11:34 BP 92/64 04/02/23 11:34 Pulse Ox 96 04/02/23 11:34 Oxygen Delivery Method Room Air 04/02/23 11:34 BMI result Body Mass Index 21.9 APPEARANCE: Patient in no acute distress EYES no redness, pupils equal and reactive to light, eyelids normal No temporal artery tenderness, redness or swelling. THROAT: Oral mucosa moist, no ulcerations EXTREMITIES: No edema, no calf tenderness, normal peripheral pulses. NEURO: Oriented and alert x3. No focal weakness. Reflexes symmetric. Gait normal. JOINT EXAM: Cervical Spine:.? Full range of motion without pain; no tenderness. Thoracic Spine:.? No scoliosis.? No tenderness on palpation. Lumbar Spine:.? Alignment normal.? Full range of motion with slight lumbar pain. No tenderness. Chest Wall:.? No tenderness, swelling, increased warmth or erythema. Hands:.? Normal pain-free range of motion. There is some mild nontender bony enlargement at the PIP and the DIP joints. No soft tissue swelling, increased warmth or erythema. Able to make a full fist and has a good dental cream maker strength. Wrists:.? Normal pain-free range of motion without tenderness, swelling, increased warmth or erythema. Elbows:. Normal pain-free range of motion without tenderness, swelling, increased warmth or erythema. Shoulders: Right: Mild pain with abduction 150 degrees or with the extremes of internal or external rotation. There is mild anterior mild subacromial tenderness. There is questionable abductor weakness without any swelling or redness. Left:?? Full range of motion without pain. No tenderness, weakness, swelling, increased warmth or erythema. Left: normal Hips:? Right:? Range of motion seems normal and does not seem to precipitate her pains.? The right inguinal region is not tender without masses, redness or warmth.? Left:? Full range of motion without pain. not weakness, adenopthy, tenderness Hip bursa:.? Mild left trochanteric tenderness. Knees:? Normal pain-free range of motion with some slight medial and popliteal tenderness but no effusion, swelling, increased warmth or erythema.? ? Results Reviewed Results Reviewed: [address] [address] XRay Report Signed Patient: Aida Robles MR#: [id number] : 1970 Acct:[id number] Age/Sex: 51 / F ADM Date: 02/14/[address]: Agueda Ramirez MD Ordering Physician: Agueda Ramirez MD Date of Service: 02/14/22 Procedure(s): XR sacroiliac joint min 3V Accession Number(s): [id number] cc: Agueda Ramirez MD~ EXAMINATION: XR SACROILIAC JOINTS XR HIP, BILATERAL XR HAND, BILATERAL CLINICAL INFORMATION: Low back pain. Bilateral hip and bilateral hand pain. COMPARISON: CT pelvis 12/16/2020. TECHNIQUE: 3 views of the sacroiliac joints. AP and frog-lateral views of each hip. 3 views of each hand. FINDINGS: SACROILIAC JOINTS: Mild degenerative changes of the sacroiliac joints with subchondral sclerosis, better demonstrated on the CT. No erosions or ankylosis. HIPS: No joint space narrowing. No fracture. No focal osseous lesion or suspicious soft tissue calcification. HANDS: Bone mineralization is normal. No periarticular osteopenia, erosions, or suspicious soft tissue calcifications. Mild osteoarthritis of the distal interphalangeal joints which appear symmetric. No acute abnormality of either hand. XR/XR sacroiliac joint min 3V IMPRESSION: SACROILIAC JOINTS: Minimal osteoarthritis. BILATERAL HIPS: Normal. BILATERAL HANDS: Minimal osteoarthritis in a distal distribution. No acute abnormalities or evidence of an inflammatory arthropathy. Dictated By: Antonio Wren MD Assessment & Plan Assessment & Plan (1) Right rotator cuff tendinitis: Code(s): M75.81 - Other shoulder lesions, right shoulder (2) Osteoarthritis of hands, bilateral: Code(s): M19.041 - Primary osteoarthritis, right hand; M19.042 - Primary osteoarthritis, left hand (3) Sjogren's syndrome: Comment: SS-A,SS-B negative. on pilocarpine Code(s): M35.00 - Sjogren syndrome, unspecified Qualifiers: Sjogren organ or system involvement: keratoconjunctivitis Qualified Code(s): M35.01 - Sjogren syndrome with keratoconjunctivitis (4) Trochanteric bursitis, left hip: Code(s): M70.62 - Trochanteric bursitis, left hip Plan She has sicca symptoms but negative Sjogren's antibodies. The dry mouth could be related to her antidepressants but symptoms seemingly there is help with the pilocarpine so we will continue it. She has still some painful range of motion in the right shoulder. I suggested again physical therapy but she declined for now. The knee pain sounds more patellofemoral in location and as I do not see any signs of inflammatory disease or joint margin tenderness. PT for the knees could also be considered. The left hip pain currently has some tenderness on laterally aspect consistent with some trochanteric bursitis. I instructed her in some gentle, [id number] exercises for the hip. We also may consider a corticosteroid injection for trochanteric bursitis. She has chronic changes of OA in the hands. She will continue with acetaminophen up to 1 g t.i.d. if needed. A follow-up in 6 months seems reasonable. Coding Level of Care Code Est Pt Level 4 (83064) Diagnoses Right rotator cuff tendinitis M75.81 Osteoarthritis of hands, bilateral M19.041; M19.042 Sjogren's syndrome with keratoconjunctivitis sicca M35.01 Sjogren organ or system involvement: keratoconjunctivitis Trochanteric bursitis, left hip M70.62
== END 2023-04-02 12:27 | disposition home or self-care (01) ==
PROVIDERS: PCP Internal Medicine; Visit Provider Internal Medicine Rheumatology
DX: M75.81 Other shoulder lesions, right shoulder (principal); M19.041 Primary osteoarthritis, right hand; M19.042 Primary osteoarthritis, left hand; M35.01 Sjogren syndrome with keratoconjunctivitis; M70.62 Trochanteric bursitis, left hip
CPT/HCPCS: 99214

== ENCOUNTER → 2023-04-02 11:21 | Outpatient (BNVA) | payer OTHER, SELFPAY | PROVIDERS: PCP Internal Medicine; Visit Provider Internal Medicine Rheumatology | DX: M35.01 Sjogren syndrome with keratoconjunctivitis (principal); M75.81 Other shoulder lesions, right shoulder; M70.62 Trochanteric bursitis, left hip; M19.041 Primary osteoarthritis, right hand; M19.042 Primary osteoarthritis, left hand | CPT/HCPCS: 99212 ==

== ENCOUNTER 2023-05-12 09:18 | Emergency (ER) | payer OTHER, SELFPAY ==
--- NOTE | 2023-05-12 | ECG_ITS ---
Test Reason : CP Blood Pressure : / mmHG Vent. Rate : 065 BPM Atrial Rate : 065 BPM P-R Int : 120 ms QRS Dur : 080 ms QT Int : 416 ms P-R-T Axes : 056 087 062 degrees QTc Int : 432 ms Sinus rhythm with Premature atrial complexes Otherwise normal ECG When compared with ECG of 14-AUG-2020 13:59, Premature atrial complexes are now Present Referred By: Generic ED Physician Electronically Signed By:ERINN MORRIS
--- NOTE | ~2023-05-12 | XR_ITS ---
EXAMINATION: XR CHEST CLINICAL INFORMATION: Chest pain COMPARISON: Previous chest x-ray most recent December 2020 TECHNIQUE: Frontal view of the chest was obtained. FINDINGS: No significant abnormality is noted involving the heart, lungs, mediastinum, bony thorax or soft tissues. XR/XR chest 1V IMPRESSION: Unremarkable examination.
[2023-05-12 09:27] VITALS: BP 103/62; PULSE 68; RESP 12; TEMP 36.7; O2SAT 94; BMI 21.9
--- NOTE | 2023-05-12 10:20 | ED.CHESTPAIN ---
HPI - Chest Pain General Chief Complaint: Chest Pain Stated Complaint: CHEST PAIN Time Seen by Provider: 05/12/23 09:28 History of Present Illness HPI narrative: Patient is a 52-year-old female presents today with having chest pain. The chest pain is left chest radiates to the shoulder. There is no rash. Positive history of smoking. No history of hypertension hypercholesterolemia. No fever no chills no diaphoresis. Patient is from home. No cough no congestion or upper respiratory symptoms. No abdominal pain. Does not radiate to the back. Patient from home. Related Data Home Medications Medication Instructions Recorded Confirmed albuterol sulfate 90 mcg/actuation 2 puff inhalation Q4H PRN wheezing 02/14/22 04/02/23 aerosol inhaler buprenorphine 12 mg-naloxone 3 mg 15 mg sublingual DAILY 02/14/22 04/02/23 sublingual film buspirone 5 mg tablet 5 mg PO BID 02/14/22 04/02/23 cholecalciferol (vitamin D3) 25 25 mcg PO DAILY 02/14/22 04/02/23 mcg (1,000 unit) tablet ciclopirox 8 % topical solution ml topical DAILY 02/14/22 04/02/23 citalopram 10 mg tablet 10 mg PO QAM 02/14/22 04/02/23 cyclosporine 0.05 % eye drops in a 1 drp ophthalmic (eye) BID 02/14/22 04/02/23 dropperette (Restasis) diclofenac sodium 1 % topical gel 2 g topical BID PRN joint pain 02/14/22 04/02/23 docusate sodium 100 mg capsule 100 mg PO DAILY 02/14/22 04/02/23 ketoconazole 2 % topical cream appl topical 02/14/22 04/02/23 mirtazapine 15 mg tablet 15 mg PO BEDTIME 02/14/22 04/02/23 nicotine 14 mg/24 hr daily 1 patch topical DAILY 02/14/22 04/02/23 transdermal patch omeprazole 40 mg capsule,delayed 40 mg PO DAILY 02/14/22 04/02/23 release pilocarpine HCl 5 mg tablet 5 mg PO BID 02/14/22 04/02/23 sucralfate 1 gram tablet 1 g PO QID 02/14/22 04/02/23 umeclidinium 62.5 mcg-vilanterol 1 ea inhalation DAILY 02/14/22 04/02/23 25 mcg/actuation powdr for inhalation (Anoro Ellipta) divalproex 250 mg tablet,delayed See Rx Instructions PO DAILY 06/06/22 04/02/23 release gabapentin 300 mg capsule 300 mg PO BID 09/07/22 04/02/23 Previous Rx's Medication Instructions Recorded lidocaine HCl 2 % mucosal solution 10 ml mucous membrane QID PRN pain 12/16/20 (Lidocaine Viscous) #400 mL valacyclovir 1 gram tablet 1,000 mg PO TID 7 days #21 tabs 12/16/20 (Valtrex) Allergies Allergy/AdvReac Type Severity Reaction Status Date / Time amitriptyline [From ELAVIL] Allergy Unknown UNKNOWN Verified 04/02/23 11:36 bupropion [From WELLBUTRIN] Allergy Unknown VISION Verified 04/02/23 11:36 ISSUES clonidine Allergy Unknown DIFF Verified 04/02/23 11:36 BREATHING cyclobenzaprine Allergy Unknown DRIES HER Verified 04/02/23 11:36 [From FLEXERIL] OUT promethazine [From PHENERGAN] Allergy Unknown INVOLUNTARY Verified 04/02/23 11:36 MOVEMENT topiramate [From TOPAMAX] Allergy Unknown ITCHINESS Verified 04/02/23 11:36 trazodone [TRAZODONE] Allergy Unknown DRIES HER Verified 04/02/23 11:36 OUT paroxetine AdvReac Unknown SEVERE Verified 04/02/23 11:36 ANXIETY Review of Systems Review of Systems: Positive chest pain Yes all other systems are reviewed and are negative PMFSH Past Medical History Medical History IBS (irritable colon syndrome) Obstructive sleep apnea COPD (chronic obstructive pulmonary disease) Gastritis Anxiety Sjogren's syndrome Asthma Surgical History History of surgery Hx of tubal ligation Family History Family History Family/Other Arthritis Social History Social History Household Members: Significant Other Alcohol intake: current Alcohol intake frequency: holidays/special occasions only Patient Tobacco Use Status: Current everyday Tobacco user Tobacco use type: Cigarette Cigarettes Per Day: 5 Smoked in Last 30 Days: Yes Substance Use Type: Marijuana Advance Directives: No Advance Directives Information Provided: No Current occupational status: employed 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 Oriented X3. No acute distress. Eyes: Pupils equal, round and reactive to light. ENT: Pharynx normal. Neck: Normal inspection. Neck supple. No lymph nodes noted. No crepitus CVS: Normal heart rate and rhythm. Pulses normal. Normal S1 and S2 Respiratory: No respiratory distress. Breath sounds normal. No Wheezing. No rales Abdomen: Soft and nontender. No rigidity. No distention. good BS x4 Skin: Skin warm and dry. Normal skin color. Normal skin turgor. Extremities: No lower extremity edema. Neurovascular intact to all extremities. No Lacerations. No Rash Neuro: Oriented X 3. No motor deficit. No sensory deficit. Moving all extermities. 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 Two sets of cardiac enzymes are negative. Pain is not associated with any shortness of breath or diaphoresis. She does have a long history of smoking. Patient is 52 years old. My interpretation of her EKG showed a sinus rhythm heart rate is 60 NH QRS QTC within normal limits there is no acute ST segment elevation. In the setting of atypical chest pain, negative troponin, 1 risk factor, age of 52 patient's heart score is less than 3. Patient's D-dimer is negative in the setting of no other risk factors for PE history not consistent with PE unlikely to have a pulmonary emboli. Patient's chest x-ray was grossly negative for pneumonia pneumothorax. Will discharge patient home for chest pain have patient follow-up on an outpatient basis. Differential Diagnosis Differential Diagnoses: The differential diagnosis associated with the presentation includes ACS, pneumonia, pneumothorax Admission/Observation Consideration of admission/observation: Escalation of care including admission/observation considered Lab Data MDM Lab Attestation statement: I reviewed the patient's lab results. 05/12/23 11:10 05/12/23 11:10 Labs: Lab Results 05/12/23 05/12/23 05/12/23 Range/Units 11:10 14:10 14:13 WBC 4.6 L (4.8-10.8) X10*3/uL RBC 3.53 L (4.20-5.50) X10*6/uL Hgb 11.1 L (12.0-16.0) g/dl Hct 32.9 L (37.0-47.0) % MCV 93.2 (80.0-98.0) fL MCH 31.4 (27.0-33.0) pg MCHC 33.7 (31.0-35.0) g/dl RDW 12.1 (11.0-16.0) % Plt Count 198 (160-400) X10*3/uL MPV 10.3 (9.4-12.3) fL Immature Gran % (Auto) 0.4 (0.0-0.4) % Neut % (Auto) 36.4 L (45-73) % Lymph % (Auto) 52.7 H (20-40) % [place] % (Auto) 5.9 (2-11) % Eos % (Auto) 3.7 (0-4) % Baso % (Auto) 0.9 (0-2) % Lymph # (Auto) 2.4 (1.2-4.9) X10*3/uL [place] # (Auto) 0.3 (0.1-1.2) X10*3/uL Eos # (Auto) 0.2 (0.0-0.4) X10*3/uL Baso # (Auto) 0.0 (0.0-0.2) X10*3/uL Abs Immat Gran (auto) 0.02 (0.00-0.03) X10*3/uL Absolute Neuts (auto) 1.7 L (2.0-8.3) x10*3/uL Absolute Nucleated RBC 0.000 (0.0-0.012) X10*3/uL Nucleated RBC % (auto) 0.0 (0.0-0.2) /100WBC D-Dimer High Sensitivty < 150 NG/ML Sodium 141 (135-145) mmol/L Potassium 4.0 (3.3-5.1) mmol/L Chloride 106 (96-108) mmol/L Carbon Dioxide 29 (22-29) mmol/L Anion Gap 10 L (12-20) BUN 10 (9-16) mg/dL Creatinine 0.75 (0.5-1.4) mg/dL Estim Creat Clear Calc 61.5 Estimated GFR > 60 Random Glucose 87 (60-115) mg/dL Calcium 8.4 (8.4-10.2) mg/dL Troponin I High Sens < 2.7 < 2.7 (<3.5-17.0) ng/L Urine Color Yellow Urine Appearance Clear Urine pH 6.5 (5.0-9.0) Ur Specific [place] 1.010 (1.005-1.025) Urine Protein Negative (Neg-Trace) mg/dL Urine Glucose (UA) Negative (Negative) mg/dL Urine Ketones Negative (Negative) mg/dL Urine Blood Small (1+) H (Negative) Urine Nitrite Negative (Negative) Ur Leukocyte Esterase Negative (Negative) Urine RBC >20 H (0-2) /HPF Urine WBC 0-5 (0-5) /HPF Ur Squamous Epith Cells 0-2 (0-2) /HPF Urine Bacteria None Seen (None Seen) Hyaline Casts 0-2 (0-2) /LPF Independent Interpretation I performed an independent interpretation of an: EKG (Sinus heart rate is 70 NH QRS QTC within normal limits there is no acute ST segment elevation.) Radiology Impression Discussion of test interpretation with radiology: I have reviewed the radiologist's reading. Independent Historian Clinical information obtained from an independent historian. History obtained from or confirmed by: EMS Prescription Management I considered prescription management with: Pain Medication Not needed Chronic Conditions Smoker Discharge Plan Discharge Clinical Impression: Atypical chest pain Patient Disposition: Home, Self-Care Instructions: Chest Pain (ED) Prescriptions: No Action valacyclovir [Valtrex] 1 gram tablet 1,000 mg PO TID 7 Days Qty: 21 0RF lidocaine HCl [Lidocaine Viscous] 2 % solution 10 ml mucous membrane QID PRN (Reason: pain) Qty: 400 0RF Rx Instructions: Dispense quantity sufficient for 7 days gabapentin 300 mg capsule 300 mg PO BID buprenorphine-naloxone 12-3 mg film 15 mg sublingual DAILY ketoconazole 2 % cream topical mirtazapine 15 mg tablet 15 mg PO BEDTIME citalopram 10 mg tablet 10 mg PO QAM cyclosporine [Restasis] 0.05 % dropperette 1 drp ophthalmic (eye) BID buspirone 5 mg tablet 5 mg PO BID nicotine 14 mg/24 hr patch 24 hour 1 patch topical DAILY sucralfate 1 gram tablet 1 g PO QID docusate sodium 100 mg capsule 100 mg PO DAILY pilocarpine HCl 5 mg tablet 5 mg PO BID Anoro Ellipta 62.5-25 mcg/actuation blister with device 1 ea inhalation DAILY omeprazole 40 mg capsule,delayed release(DR/EC) 40 mg PO DAILY cholecalciferol (vitamin D3) 25 mcg (1,000 unit) tablet 25 mcg PO DAILY albuterol sulfate 90 mcg/actuation HFA aerosol inhaler 2 puff inhalation Q4H PRN (Reason: wheezing) diclofenac sodium 1 % gel 2 g topical BID PRN (Reason: joint pain) ciclopirox 8 % solution topical DAILY divalproex 250 mg tablet,delayed release (DR/EC) See Rx Instructions PO DAILY Rx Instructions: 250mg QAM 500mg QPM orally daily; Referrals: Aaron Saldana MD [Physician] - 05/15/23
[2023-05-12 11:13] LABS: MANUAL DIFF FLAG NO
[2023-05-12 11:15] LABS: Basophils Percent Auto 0.9 % (0-2); Eosinophils Absolute Auto 0.2 X10*3/uL (0.0-0.4); Eosinophils Percent Auto 3.7 % (0-4); Hematocrit 32.9 % (37.0-47.0); Hemoglobin 11.1 g/dl (12.0-16.0); Imm Gran Abs Auto 0.02 X10*3/uL (0.00-0.03); Imm Gran Pct Auto 0.4 % (0.0-0.4); Lymphocytes Absolute Auto 2.4 X10*3/uL (1.2-4.9); Lymphocytes Percent Auto 52.7 % (20-40); Mean Corpuscular HGB Conc 33.7 g/dl (31.0-35.0); Mean Corpuscular Hemoglobin 31.4 pg (27.0-33.0); Mean Corpuscular Volume 93.2 fL (80.0-98.0); Mean Platelet Volume 10.3 fL (9.4-12.3); Monocytes Absolute Auto 0.3 X10*3/uL (0.1-1.2); Monocytes Percent Auto 5.9 % (2-11); Neutrophils Absolute Auto 1.7 x10*3/uL (2.0-8.3); Neutrophils Percent Auto 36.4 % (45-73); Platelet Count 198 X10*3/uL (160-400); Red Blood Count 3.53 X10*6/uL (4.20-5.50); Red Cell Distribution Width 12.1 % (11.0-16.0); White Blood Count 4.6 X10*3/uL (4.8-10.8)
[2023-05-12 11:22] LABS: D Dimer High Sensitivity < 150 NG/ML
[2023-05-12 11:27] LABS: Anion Gap 10 (12-20); Blood Urea Nitrogen 10 mg/dL (9-16); Calcium 8.4 mg/dL (8.4-10.2); Carbon Dioxide 29 mmol/L (22-29); Chloride 106 mmol/L (96-108); Creatinine Clr Calc Pharmacy 61.5; Estimated Glomerular Filt Rate > 60; Glucose Random 87 mg/dL (60-115); Sodium 141 mmol/L (135-145)
[2023-05-12 11:35] LABS: Troponin-I High Sensitivity < 2.7 ng/L (<3.5-17.0)
[2023-05-12 14:19] LABS: Appearance Urine Clear; Color Urine Yellow; Glucose Urine UA Negative (Negative); Leukocyte Esterase Urine Negative (Negative); Nitrite Urine Negative (Negative); PH 6.5 (5.0-9.0); UMIC TRIGGER UACC YES; Urine Blood Small (1+) (Negative); Urine Ketones Negative (Negative); Urine Protein Negative (Neg-Trace)
[2023-05-12 14:22] LABS: Bacteria Urine None Seen (None Seen); Hyaline Casts Urine 0-2 /LPF (0-2); RBC Urine >20 /HPF (0-2); Squamous Epithelial Cell Urine 0-2 /HPF (0-2); WBC Urine 0-5 /HPF (0-5)
[2023-05-12 14:38] LABS: Troponin-I High Sensitivity < 2.7 ng/L (<3.5-17.0)
--- NOTE | 2023-05-12 16:17 | PC.NURSE ---
patient left emergency department before discharge paperwork could be given and assessment could be done.
== END 2023-05-12 16:18 | disposition home or self-care (01) ==
PROVIDERS: Emergency Provider Emergency Medicine Emergency Medical Services
DX: R07.9 Chest pain, unspecified (principal); J44.89 Other specified chronic obstructive pulmonary disease; M35.00 Sjogren syndrome, unspecified; G47.33 Obstructive sleep apnea (adult) (pediatric)
CPT/HCPCS: 36415; 71045; 80048; 81001; 84484; 85025; 85379; 93005; 99284; 99285

== ENCOUNTER → 2023-05-12 10:14 | Outpatient (BNV) | payer OTHER, SELFPAY | PROVIDERS: Emergency Provider Emergency Medicine Emergency Medical Services; Visit Provider Internal Medicine | DX: I49.1 Atrial premature depolarization (principal) | CPT/HCPCS: 93010 ==

== ENCOUNTER 2023-12-02 06:53 | Emergency (ER) | payer OTHER, SELFPAY ==
--- NOTE | 2023-12-02 | ECG_ITS ---
Test Reason : SOB Blood Pressure : / mmHG Vent. Rate : 066 BPM Atrial Rate : 066 BPM P-R Int : 100 ms QRS Dur : 080 ms QT Int : 392 ms P-R-T Axes : 026 089 057 degrees QTc Int : 410 ms Sinus rhythm with short CA Otherwise normal ECG When compared with ECG of 12-MAY-2023 10:14, Premature atrial complexes are no longer Present Referred By: Generic ED Physician Electronically Signed By:MAGALY AGUAYO MD
--- NOTE | ~2023-12-02 | XR_ITS ---
EXAMINATION: XR CHEST CLINICAL INFORMATION: Shortness of breath COMPARISON: 05/12/2023 TECHNIQUE: Frontal view of the chest was obtained. FINDINGS: No significant abnormality is noted involving the heart, lungs, mediastinum, bony thorax or soft tissues. XR/XR chest 1V IMPRESSION: Unremarkable examination.
[2023-12-02 06:56] VITALS: BP 119/62; PULSE 75; RESP 16; TEMP 36.4; O2SAT 98; BMI 22.2
[2023-12-02 07:23] VITALS: O2SAT 99
[2023-12-02 07:24] LABS: MANUAL DIFF FLAG NO
[2023-12-02 07:25] VITALS: BP 96/51; PULSE 75; RESP 19; TEMP 37.2; O2SAT 98
[2023-12-02 07:26] VITALS: PULSE 74
--- NOTE | 2023-12-02 07:28 | PC.NURSE ---
patient arrives ambulatory with steady gait through external triage with complaint of some shortness of breath and a cough for the last few days, patient states she has 2 inhalers that she uses at home but lately they have not been helping, states she has a history of bronchitis and pneumonia and she thinks this could be one of those. states she has been taking her temp at home and has been around 99, denies any chills or sick contacts. patient lung sounds clear to auscultation, patient states she feels as if there is something in her chest and she is unable to get it up and when she is able to produce any mucus it is yellow in color, denies any chest pain or swelling. patient saturating well on room air, VSS, EKG and blood work completed. provider at bedside now for [place].
[2023-12-02 07:32] LABS: Basophils Percent Auto 0.5 % (0-2); Eosinophils Absolute Auto 0.3 X10*3/uL (0.0-0.4); Eosinophils Percent Auto 3.3 % (0-4); Hematocrit 34.1 % (37.0-47.0); Hemoglobin 11.9 g/dl (12.0-16.0); Imm Gran Abs Auto 0.03 X10*3/uL (0.00-0.03); Imm Gran Pct Auto 0.3 % (0.0-0.4); Lymphocytes Absolute Auto 2.5 X10*3/uL (1.2-4.9); Lymphocytes Percent Auto 28.9 % (20-40); Mean Corpuscular HGB Conc 34.9 g/dl (31.0-35.0); Mean Corpuscular Hemoglobin 32.2 pg (27.0-33.0); Mean Corpuscular Volume 92.2 fL (80.0-98.0); Monocytes Absolute Auto 0.5 X10*3/uL (0.1-1.2); Monocytes Percent Auto 5.6 % (2-11); Neutrophils Absolute Auto 5.3 x10*3/uL (2.0-8.3); Neutrophils Percent Auto 61.4 % (45-73); Platelet Count 174 X10*3/uL (160-400); Red Cell Distribution Width 12.9 % (11.0-16.0); White Blood Count 8.7 X10*3/uL (4.8-10.8)
[2023-12-02 07:40] LABS: Anion Gap 12 (12-20); Blood Urea Nitrogen 9 mg/dL (9-16); Carbon Dioxide 27 mmol/L (22-29); Chloride 105 mmol/L (96-108); Creatinine Clr Calc Pharmacy 52.8; Estimated Glomerular Filt Rate > 60; Glucose Random 92 mg/dL (60-115); Sodium 140 mmol/L (135-145)
--- NOTE | 2023-12-02 07:46 | ED.URI ---
HPI - URI/Sore Throat General Chief Complaint: Upper Respiratory Symptoms Stated Complaint: SoB, hx of bronchitis Time Seen by Provider: 12/02/23 07:23 Source: patient, RN notes reviewed and old records reviewed History of Present Illness ED Provider: Kiara Jimenez PA-C HPI Narrative: 52-year-old female with a past medical history of IBS, ANNAMARIE, COPD, asthma, anxiety, Sjogren's, presenting to the ED complaining of SOB and productive cough x1 week. Also reports low-grade fever T-max 99 degrees. Has been using inhalers at home without relief. Denies chest pain, pedal edema, sick contacts, nausea/vomiting Pertinent past history: COPD and asthma Related Data Home Medications ?Medication ?Instructions ?Recorded ?Confirmed albuterol sulfate 90 mcg/actuation 2 puff inhalation Q4H PRN wheezing 02/14/22 04/02/23 aerosol inhaler buprenorphine 12 mg-naloxone 3 mg 15 mg sublingual DAILY 02/14/22 04/02/23 sublingual film buspirone 5 mg tablet 5 mg PO BID 02/14/22 04/02/23 cholecalciferol (vitamin D3) 25 25 mcg PO DAILY 02/14/22 04/02/23 mcg (1,000 unit) tablet ciclopirox 8 % topical solution ml topical DAILY 02/14/22 04/02/23 citalopram 10 mg tablet 10 mg PO QAM 02/14/22 04/02/23 cyclosporine 0.05 % eye drops in a 1 drp ophthalmic (eye) BID 02/14/22 04/02/23 dropperette (Restasis) diclofenac sodium 1 % topical gel 2 g topical BID PRN joint pain 02/14/22 04/02/23 docusate sodium 100 mg capsule 100 mg PO DAILY 02/14/22 04/02/23 ketoconazole 2 % topical cream appl topical 02/14/22 04/02/23 mirtazapine 15 mg tablet 15 mg PO BEDTIME 02/14/22 04/02/23 nicotine 14 mg/24 hr daily 1 patch topical DAILY 02/14/22 04/02/23 transdermal patch omeprazole 40 mg capsule,delayed 40 mg PO DAILY 02/14/22 04/02/23 release pilocarpine HCl 5 mg tablet 5 mg PO BID 02/14/22 04/02/23 sucralfate 1 gram tablet 1 g PO QID 02/14/22 04/02/23 umeclidinium 62.5 mcg-vilanterol 1 ea inhalation DAILY 02/14/22 04/02/23 25 mcg/actuation powdr for inhalation (Anoro Ellipta) divalproex 250 mg tablet,delayed See Rx Instructions PO DAILY 06/06/22 04/02/23 release gabapentin 300 mg capsule 300 mg PO BID 09/07/22 04/02/23 Previous Rx's ?Medication ?Instructions ?Recorded lidocaine HCl 2 % mucosal solution 10 ml mucous membrane QID PRN pain 12/16/20 (Lidocaine Viscous) #400 mL valacyclovir 1 gram tablet 1,000 mg PO TID 7 days #21 tabs 12/16/20 (Valtrex) prednisone 20 mg tablet 40 mg (2 x 20 mg) PO DAILY 5 days 12/02/23 #10 tabs Allergies Allergy/AdvReac Type Severity Reaction Status Date / Time amitriptyline [From ELAVIL] Allergy Unknown UNKNOWN Verified 04/02/23 11:36 bupropion [From WELLBUTRIN] Allergy Unknown VISION Verified 04/02/23 11:36 ISSUES clonidine Allergy Unknown DIFF Verified 04/02/23 11:36 BREATHING cyclobenzaprine Allergy Unknown DRIES HER Verified 04/02/23 11:36 [From FLEXERIL] OUT promethazine [From PHENERGAN] Allergy Unknown INVOLUNTARY Verified 04/02/23 11:36 MOVEMENT topiramate [From TOPAMAX] Allergy Unknown ITCHINESS Verified 04/02/23 11:36 trazodone [TRAZODONE] Allergy Unknown DRIES HER Verified 04/02/23 11:36 OUT fish derived [fish] Allergy Swelling Verified 12/02/23 07:00 paroxetine AdvReac Unknown SEVERE Verified 04/02/23 11:36 ANXIETY Review of Systems Review of Systems: Constitutional: + Fever, No Chills ENT/Mouth: No Ear Pain, No Nasal Congestion, No Sinus Pain, No Hoarseness, No sore throat, No Rhinorrhea, No Swallowing Difficulty Cardiovascular: No Chest Pain, + SOB Respiratory: +Cough, + Sputum, No Wheezing Gastrointestinal: No Nausea, No Vomiting, No Diarrhea, No Constipation, No Abdominal pain Musculoskeletal: No joint pain, No Myalgias, No Joint Swelling Skin: No Skin Lesions, No rash Neuro: No Weakness, No Numbness, No Paresthesias Yes all other systems are reviewed and are negative Constitutional: Constitutional: Reports as per [facility] Past Medical History Attestation statement: The following information was validated with the patient. Source: old records reviewed Medical History IBS (irritable colon syndrome) Obstructive sleep apnea COPD (chronic obstructive pulmonary disease) Gastritis Anxiety Sjogren's syndrome Asthma Surgical History History of surgery Hx of tubal ligation Family History Family History Family/Other Arthritis Social History Social History Household Members: Significant Other Alcohol intake: current Alcohol intake frequency: a few times a month Patient Tobacco Use Status: Current everyday Tobacco user Tobacco use type: Cigarette Cigarettes Per Day: 5 Smoked in Last 30 Days: Yes Use of substances other than those prescribed or required for medical reasons: No Substance Use Type: Marijuana Advance Directives: No Advance Directives Information Provided: No Patient : No Current occupational status: employed 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 [employer] Physical Exam Vital Signs: Vital Signs: Last Vital Signs Temp 97.5 F 12/02/23 09:25 Pulse 75 12/02/23 09:25 Resp 19 12/02/23 09:25 BP 119/62 12/02/23 09:25 Pulse Ox 99 12/02/23 09:25 O2 Del Method Room Air 12/02/23 09:25 BMI result Body Mass Index 22.2 Const: General: cooperative, healthy appearing and no acute distress Orientation/consciousness: patient oriented x3 Limitations: no limitations HEENT: Head: Yes normal to inspection and Yes atraumatic Ears: hearing grossly normal bilaterally General nose exam: Normal external nose present Face and sinus: Yes normal facial exam Eyes: General: appearance normal, both eyes and all related structures EOM: EOMs intact bilaterally Neck: Neck: Yes normal visual inspection and Yes no meningeal signs Resp: Effort & Inspection: normal respiratory effort and no respiratory distress Auscultation: clear to auscultation bilaterally, no crackles and no wheezes Cardio: Rate: regular rate Heart sounds: S1 normal heart sound present and S2 normal heart sound present GI: Inspection: Yes normal to inspection Palpation (GI): Soft to palpation, nontender, no guarding and not rigid Skin: Rashes: no rashes Wounds: no wounds Neuro: General: patient oriented x3, tone normal and no meningeal signs Cranial nerves: Yes CN's II-XII intact bilaterally Gait exam (Neuro): Normal gait present Extrem: General: Yes normal to inspection, Yes no pedal edema and Yes no calf tenderness Course Course Course Narrative: -921--labs reassuring. CXR unremarkable. -COVID and flu negative Results discussed with patient including worrisome signs and symptoms and strict return precautions, and when to return to the emergency department. They verbalized understanding and feel safe for discharge at this time. Medications Administered Discontinued Medications Generic Name Dose Route Start Last Admin Trade Name Freq PRN Reason Stop Dose Admin Albuterol Sulfate 2.5 mg/ 0 mg 12/02/23 08:28 12/02/23 08:32 Albuterol/Ipratropium 3 ml INHALE 12/02/23 08:29 1 dose ONCE ONE Administration Medical Decision Making Medical Decision Making [facility] Narrative: 52-year-old female with a past medical history of IBS, ANNAMARIE, COPD, asthma, anxiety, Sjogren's, presenting to the ED complaining of SOB and productive cough x1 week. On exam vital signs stable, NAD, nontoxic appearing, talking in complete sentences, lungs CTA, good air movement, no pedal edema. Concern for asthma/COPD exacerbation vs pneumonia vs bronchitis. Lower suspicion for ACS/PE or CHF Plan: Labs, viral testing, CXR, ED bronchodilator protocol Please refer to course for remaining clinical decision making, interpretation of labs/imaging results, and discussions with consultants and/or family members. Differential Diagnosis Differential Diagnoses: The differential diagnosis associated with the presentation includes As above Admission/Observation Consideration of admission/observation: Escalation of care including admission/observation considered Lab Data [facility] Lab Attestation statement: I reviewed the patient's lab results. 12/02/23 07:20 12/02/23 07:20 Labs: Lab Results 12/02/23 Range/Units 07:20 WBC 8.7 (4.8-10.8) X10*3/uL RBC 3.70 L (4.20-5.50) X10*6/uL Hgb 11.9 L (12.0-16.0) g/dl Hct 34.1 L (37.0-47.0) % MCV 92.2 (80.0-98.0) fL MCH 32.2 (27.0-33.0) pg MCHC 34.9 (31.0-35.0) g/dl RDW 12.9 (11.0-16.0) % Plt Count 174 (160-400) X10*3/uL MPV 11.0 (9.4-12.3) fL Immature Gran % (Auto) 0.3 (0.0-0.4) % Neut % (Auto) 61.4 (45-73) % Lymph % (Auto) 28.9 (20-40) % [place] % (Auto) 5.6 (2-11) % Eos % (Auto) 3.3 (0-4) % Baso % (Auto) 0.5 (0-2) % Lymph # (Auto) 2.5 (1.2-4.9) X10*3/uL [place] # (Auto) 0.5 (0.1-1.2) X10*3/uL Eos # (Auto) 0.3 (0.0-0.4) X10*3/uL Baso # (Auto) 0.0 (0.0-0.2) X10*3/uL Abs Immat Gran (auto) 0.03 (0.00-0.03) X10*3/uL Absolute Neuts (auto) 5.3 (2.0-8.3) x10*3/uL Absolute Nucleated RBC 0.000 (0.0-0.012) X10*3/uL Nucleated RBC % (auto) 0.0 (0.0-0.2) /100WBC Sodium 140 (135-145) mmol/L Potassium 4.0 (3.3-5.1) mmol/L Chloride 105 (96-108) mmol/L Carbon Dioxide 27 (22-29) mmol/L Anion Gap 12 (12-20) BUN 9 (9-16) mg/dL Creatinine 0.83 (0.5-1.4) mg/dL Estim Creat Clear Calc 52.8 Estimated GFR > 60 Random Glucose 92 (60-115) mg/dL Calcium 9.0 D (8.4-10.2) mg/dL COVID-19 (BILLIE) Negative (Negative) COVID-19 Clin Com See Note Influenza Type A (SUKHDEEP) Negative (Negative) Influenza Type B (SUKHDEEP) Negative (Negative) Influenza A & B Note See Note Independent Interpretation I performed an independent interpretation of an: EKG (My interpretation EKG normal sinus rhythm with short PA rate of 66. QRS 80. QTC 410. Premature atrial complexes no longer present when compared to prior. No STEMI ) Radiology Impression Discussion of test interpretation with radiology: I have reviewed the radiologist's reading. External Record Review External record reviewed: Inpatient record, Office record, Outpatient record, Prior outpatient labs, Prior outpatient radiology, Primary care record and Outside ED record Tests considered The following testing was considered but not selected: As above Chronic Conditions Patient?s care impacted by: Other (Asthma/COPD) Critical Care Time Critical Care Time Critical Care Time: Yes Total Critical Care Time: 32 Attestation: I have personally provided critical care time exclusive of time spent on separately billable procedures. Time includes review of lab data, radiology results, discussion with consultants, and monitoring for potential decompensation. Intervention performed as documented. Discharge Plan Discharge Clinical Impression: Bronchitis Patient Disposition: Home, Self-Care Instructions: Acute Bronchitis (ED) Additional Instructions: Your blood work and x-ray were reassuring You tested negative for COVID and flu Continue to use her inhalers, home medications, and nebulizer at home In addition take prednisone Follow-up with her doctor If symptoms persist or worsen return to the emergency department Prescriptions: New prednisone 20 mg tablet 40 mg PO DAILY 5 Days Qty: 10 0RF No Action valacyclovir [Valtrex] 1 gram tablet 1,000 mg PO TID 7 Days Qty: 21 0RF lidocaine HCl [Lidocaine Viscous] 2 % solution 10 ml mucous membrane QID PRN (Reason: pain) Qty: 400 0RF Rx Instructions: Dispense quantity sufficient for 7 days gabapentin 300 mg capsule 300 mg PO BID buprenorphine-naloxone 12-3 mg film 15 mg sublingual DAILY ketoconazole 2 % cream topical mirtazapine 15 mg tablet 15 mg PO BEDTIME citalopram 10 mg tablet 10 mg PO QAM cyclosporine [Restasis] 0.05 % dropperette 1 drp ophthalmic (eye) BID buspirone 5 mg tablet 5 mg PO BID nicotine 14 mg/24 hr patch 24 hour 1 patch topical DAILY sucralfate 1 gram tablet 1 g PO QID docusate sodium 100 mg capsule 100 mg PO DAILY pilocarpine HCl 5 mg tablet 5 mg PO BID Anoro Ellipta 62.5-25 mcg/actuation blister with device 1 ea inhalation DAILY omeprazole 40 mg capsule,delayed release(DR/EC) 40 mg PO DAILY cholecalciferol (vitamin D3) 25 mcg (1,000 unit) tablet 25 mcg PO DAILY albuterol sulfate 90 mcg/actuation HFA aerosol inhaler 2 puff inhalation Q4H PRN (Reason: wheezing) diclofenac sodium 1 % gel 2 g topical BID PRN (Reason: joint pain) ciclopirox 8 % solution topical DAILY divalproex 250 mg tablet,delayed release (DR/EC) See Rx Instructions PO DAILY Rx Instructions: 250mg QAM 500mg QPM orally daily; Referrals: Isaac Patel MD [Primary Care Provider] - 5 days Interventions: ED Discharge Assessment Last Done: 12/02/23 09:25 Discharge Date/Time: 12/02/23 09:30 Print Language: [place]er
[2023-12-02 07:51] LABS: COVID-19 Test Negative (Negative); IDNOW Serial# 152EDE1D
[2023-12-02 08:10] LABS: IDNOW Serial# 152EDE1D; Influenza A Negative (Negative); Influenza B2 Negative (Negative)
[2023-12-02 08:32] VITALS: PULSE 71; RESP 16; O2SAT 99
[2023-12-02] MEDS: Albuterol Sulfate 2.5 MG, Albuterol/Iprat 2.5/0.5MG 3 ML 3 ML INHALE (08:32)
[2023-12-02 09:25] VITALS: BP 119/62; PULSE 75; RESP 19; TEMP 36.4; O2SAT 99
== END 2023-12-02 09:30 | disposition home or self-care (01) ==
PROVIDERS: Emergency Provider Emergency Medicine; PCP Internal Medicine
DX: J40 Bronchitis, not specified as acute or chronic (principal); J06.9 Acute upper respiratory infection, unspecified; J44.9 Chronic obstructive pulmonary disease, unspecified; R05.9 Cough, unspecified; R94.31 Abnormal electrocardiogram [ECG] [EKG]; R06.02 Shortness of breath; Z11.52 Encounter for screening for COVID-19; Z79.899 Other long term (current) drug therapy
CPT/HCPCS: 71045; 80048; 85025; 87502; 87635; 93005; 94640; 99284; 99285

== ENCOUNTER → 2023-12-02 07:22 | Outpatient (BNV) | payer OTHER, SELFPAY | PROVIDERS: Emergency Provider Emergency Medicine; PCP Internal Medicine; Visit Provider Internal Medicine Cardiovascular Disease | DX: R06.02 Shortness of breath (principal) | CPT/HCPCS: 93010 ==

== ENCOUNTER 2024-04-26 15:45 | Emergency (ER) | payer OTHER, SELFPAY ==
--- NOTE | ~2024-04-26 | XR_ITS ---
EXAMINATION: XR CHEST CLINICAL INFORMATION: cough COMPARISON: Chest radiograph dated December 02, 2023. TECHNIQUE: 2 views of the chest were obtained. FINDINGS: The heart is normal in size. Both lungs are clear. There is no pleural effusion or pneumothorax. No acute osseous abnormality. XR/XR chest 2V IMPRESSION: No acute cardiopulmonary disease. Electronically signed by: Isaias Valentine DO 04/26/2024 05:[address] [facility]
[2024-04-26 15:48] VITALS: BP 111/42; PULSE 78; RESP 18; TEMP 36.4; O2SAT 97; BMI 19.7
--- NOTE | 2024-04-26 15:48 | ED_ITS ---
HPI - URI/Sore Throat General Chief Complaint: Upper Respiratory Symptoms Stated Complaint: cough ,upper back pain Time Seen by Provider: 04/26/24 16:04 Source: patient, RN notes reviewed and old records reviewed Mode of arrival: ambulatory Limitations: no limitations History of Present Illness ED Provider: MIREYA NORIEGA PA-C HPI Narrative: 53-year-old female with past medical history significant for Sjogren's, anxiety, osteoarthritis, asthma, COPD, ANNAMARIE presents to the ED today for evaluation of dry cough x2 days. She states that she has been coughing so hard she has started to have upper back pain with coughing. Admits to history of similar the last time she was diagnosed with bronchitis/ pneumonia approximately 1 year ago. Denies recent travel or long car rides. Denies known sick contacts. Denies fever, chills, sore throat, wheezing, shortness of breath, chest pain, sputum production, hemoptysis, leg pain/swelling. Related Data Home Medications ?Medication ?Instructions ?Recorded ?Confirmed albuterol sulfate 90 mcg/actuation 2 puff inhalation Q4H PRN wheezing 02/14/22 04/02/23 aerosol inhaler buprenorphine 12 mg-naloxone 3 mg 15 mg sublingual DAILY 02/14/22 04/02/23 sublingual film buspirone 5 mg tablet 5 mg PO BID 02/14/22 04/02/23 cholecalciferol (vitamin D3) 25 25 mcg PO DAILY 02/14/22 04/02/23 mcg (1,000 unit) tablet ciclopirox 8 % topical solution ml topical DAILY 02/14/22 04/02/23 citalopram 10 mg tablet 10 mg PO QAM 02/14/22 04/02/23 cyclosporine 0.05 % eye drops in a 1 drp ophthalmic (eye) BID 02/14/22 04/02/23 dropperette (Restasis) diclofenac sodium 1 % topical gel 2 g topical BID PRN joint pain 02/14/22 04/02/23 docusate sodium 100 mg capsule 100 mg PO DAILY 02/14/22 04/02/23 ketoconazole 2 % topical cream appl topical 02/14/22 04/02/23 mirtazapine 15 mg tablet 15 mg PO BEDTIME 02/14/22 04/02/23 nicotine 14 mg/24 hr daily 1 patch topical DAILY 02/14/22 04/02/23 transdermal patch omeprazole 40 mg capsule,delayed 40 mg PO DAILY 02/14/22 04/02/23 release pilocarpine HCl 5 mg tablet 5 mg PO BID 02/14/22 04/02/23 sucralfate 1 gram tablet 1 g PO QID 02/14/22 04/02/23 umeclidinium 62.5 mcg-vilanterol 1 ea inhalation DAILY 02/14/22 04/02/23 25 mcg/actuation powdr for inhalation (Anoro Ellipta) divalproex 250 mg tablet,delayed See Rx Instructions PO DAILY 06/06/22 04/02/23 release gabapentin 300 mg capsule 300 mg PO BID 09/07/22 04/02/23 Previous Rx's ?Medication ?Instructions ?Recorded lidocaine HCl 2 % mucosal solution 10 ml mucous membrane QID PRN pain 12/16/20 (Lidocaine Viscous) #400 mL valacyclovir 1 gram tablet 1,000 mg PO TID 7 days #21 tabs 12/16/20 (Valtrex) prednisone 20 mg tablet 40 mg (2 x 20 mg) PO DAILY 5 days 12/02/23 #10 tabs azithromycin 250 mg tablet See Rx Instructions PO .COMPLEX #6 04/26/24 tabs benzonatate 100 mg capsule 100 mg PO BID PRN cough #14 caps 04/26/24 prednisone 20 mg tablet 40 mg (2 x 20 mg) PO DAILY 4 days 04/26/24 #8 tabs Allergies Allergy/AdvReac Type Severity Reaction Status Date / Time amitriptyline [From ELAVIL] Allergy Unknown UNKNOWN Verified 04/26/24 15:50 bupropion [From WELLBUTRIN] Allergy Unknown VISION Verified 04/26/24 15:50 ISSUES clonidine Allergy Unknown DIFF Verified 04/26/24 15:50 BREATHING cyclobenzaprine Allergy Unknown DRIES HER Verified 04/26/24 15:50 [From FLEXERIL] OUT promethazine [From PHENERGAN] Allergy Unknown INVOLUNTARY Verified 04/26/24 15:50 MOVEMENT topiramate [From TOPAMAX] Allergy Unknown ITCHINESS Verified 04/26/24 15:50 trazodone [TRAZODONE] Allergy Unknown DRIES HER Verified 04/26/24 15:50 OUT fish derived [fish] Allergy Swelling Verified 04/26/24 15:50 paroxetine AdvReac Unknown SEVERE Verified 04/26/24 15:50 ANXIETY Review of Systems Review of Systems: Constitutional: No fever, chills, fatigue, night sweats, weight changes ENT/Mouth: No ear pain, hearing loss, nasal congestion, sinus pain, rhinorrhea, sore throat Eyes: No eye pain, swelling, redness, vision changes, discharge Cardio: No chest pain, palpitations, BHATT, orthopnea, peripheral edema Pulm: No SOB, cough, sputum, wheezing, dyspnea, hemoptysis, +dry cough GI: No nausea, vomiting, hematemesis, abdominal pain, diarrhea, constipation, hematochezia, melena : No irregular bleeding, dysuria, frequency, urgency, hesitancy, hematuria, flank pain, urinary flow changes, urinary incontinence or retention MSK: No back pain, neck pain, joint pain, myalgias Skin: No lesions, rashes Neuro: No weakness, numbness, paresthesias, LOC, dizziness, headache Psych: No anxiety/panic, depression, SI/HI, AH/VH All other systems reviewed and are negative. [facility] Past Medical History Attestation statement: The following information was validated with the patient. Source: old records reviewed and nursing notes reviewed Medical History IBS (irritable colon syndrome) Obstructive sleep apnea COPD (chronic obstructive pulmonary disease) Gastritis Anxiety Sjogren's syndrome Asthma Surgical History History of surgery Hx of tubal ligation Family History Family History Family/Other Arthritis Social History Social History Household Members: Significant Other Alcohol intake: current Alcohol intake frequency: a few times a month Patient Tobacco Use Status: Current everyday Tobacco user Tobacco use type: Cigarette Cigarettes Per Day: 5 Substance Use Type: Marijuana Advance Directives: No Advance Directives Information Provided: No Do you have a plan to hurt others: No Plan Current occupational status: employed 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 Skin: Warm, dry, intact. No rashes or lesions. Head: Normocephalic, atraumatic. EENT: Hearing is intact b/l. Conjunctiva clear. PERRLA. EOM intact. Moist mucous membranes.? Neck: Supple without LAD Cardiac: Chest wall symmetric. RRR. No reproducible anterior/lateral/posterior chest wall tenderness, crepitus or deformity Lungs: No increased effort of breathing. No tripoding. No audible wheezes. Lungs with minimal wheezes to bases. No rhonchi or crackles Abdomen: Soft, non-tender, non-distended. No rebound tenderness or guarding. Positive BS x4. Back: No midline spinous or paraspinal tenderness. No step off deformity. Ext: Upper and lower extremities atraumatic, without tenderness, deformity, swelling or erythema. Full ROM throughout. No calf tenderness b/l. no peripheral edema. Neuro: AOx3. Normal speech. Ambulating with steady gait. Psych: Appropriate mood and affect. Responds appropriately to questions. Course Course Course Narrative: This is a Rapid Medical Exam performed in triage by Kiara Jimenez PA-C. Full HPI, ROS and PE to be performed by primary ED provider. 53yo F w/pmhx Sjogren's. anxiety, OA, asthma, COPD, ANNAMARIE, presenting to the ED c/o dry cough, R upper back pain w/coughing x2 days. denies CP/SOB. denies travel/sick contacts PE: talking in complete sentences, nontoxic appearing, ambulating w/steady gait Plan: CXR, viral testing Reevaluation(s) Reevaluation #1: patient tested negative for COVID, flu, RSV. Chest x-ray does not demonstrate focal infiltrate or consolidation to suggest pneumonia. Will treat for bronchitis. Prednisone, Tessalon Perles and azithromycin sent to pharmacy for treatment. Patient has remained stable throughout ED visit today. Discussed worrisome signs and symptoms and when to return to the ED. All questions answered at this time. Patient is agreeable with disposition and stable for discharge. Medications Administered Discontinued Medications Generic Name Dose Route Start Last Admin Trade Name Estella PRN Reason Stop Dose Admin Prednisone 40 mg 04/26/24 16:47 04/26/24 16:58 Prednisone 20 Mg Tablet PO 04/26/24 16:48 40 mg ONCE ONE Administration Medical Decision Making Medical Decision Making [facility] Narrative: 53-year-old female with past medical history significant for Sjogren's, anxiety, osteoarthritis, asthma, COPD, ANNAMARIE presents to the ED today for evaluation of dry cough x2 days. vital signs stable. afebrile. not hypoxic. she is nontoxic appearing and in NAD. skin w/d/i. No increased effort of breathing. No tripoding. No audible wheezes. Lungs with minimal wheezes to bases. No rhonchi or crackles. No peripheral edema. No calf tenderness. No midline spinous tenderness or step-off deformity. No reproducible anterior/lateral/posterior chest wall tenderness, crepitus or deformity Differential diagnosis includes asthma/COPD exacerbation, bronchitis, pneumonia, viral syndrome. Unlikely ACS, arrhythmia, PE, pleural effusion, pneumothorax, rib fracture, contusion, flail chest, CHF. Plan for viral serology, chest x-ray, re-evaluation. Differential Diagnosis Differential Diagnoses: The differential diagnosis associated with the presentation includes As above Admission/Observation Not indicated Lab Data [facility] Lab Attestation statement: I reviewed the patient's lab results. As above Labs: Lab Results 04/26/24 Range/Units 15:58 Influenza Type A (PCR) NEGATIVE (Negative) Influenza Type B (PCR) NEGATIVE (Negative) RSV RNA Qual (PCR) NEGATIVE (Negative) SARS-CoV-2 RNA (RT-PCR) NEGATIVE (Negative) Independent Interpretation I performed an independent interpretation of an: Plain X-Ray Interpretation: Chest x-ray without focal infiltrate or consolidation Radiology Impression Discussion of test interpretation with radiology: I have reviewed the radiologist's reading. Radiologist Impression: EXAMINATION: XR CHEST CLINICAL INFORMATION: cough COMPARISON: Chest radiograph dated December 02, 2023. TECHNIQUE: 2 views of the chest were obtained. FINDINGS: The heart is normal in size. Both lungs are clear. There is no pleural effusion or pneumothorax. No acute osseous abnormality. XR/XR chest 2V IMPRESSION: No acute cardiopulmonary disease. Electronically signed by: Isaias Valentine DO 04/26/2024 05:14 PM [facility] External Record Review External record reviewed: Inpatient record Prescription Management I considered prescription management with: Pain Medication (tylenol/ motrin) and Antibiotic (zpak) Critical Care Time Critical Care Time Critical Care Time: No Discharge Plan Discharge Clinical Impression: Acute bronchitis Patient Disposition: Home, Self-Care Instructions: Acute Bronchitis (ED) Additional Instructions: You tested negative for COVID, flu, RSV. Your chest x-ray is negative for pneumonia. You will be treated for bronchitis. Azithromycin is antibiotic that has been sent to your pharmacy for you to take over the next 5 days. I have also sent prednisone to your pharmacy for you to take over this 4 days, starting tomorrow. You already received a dose in the ED today. Take tylenol/ motrin at home for pain/ discomfort. Please follow up with your primary care provider. Return with new or worsening symptoms. In the case of an emergency call 911. Prescriptions: New prednisone 20 mg tablet 40 mg PO DAILY 4 Days Qty: 8 0RF azithromycin 250 mg tablet See Rx Instructions .ROUTE .COMPLEX Qty: 6 0RF Rx Instructions: For 250 mg dose pack: take 500 mg today (day 1), then 250 mg for 4 days (days 2-5) benzonatate 100 mg capsule 100 mg PO BID PRN (Reason: cough) Qty: 14 0RF No Action valacyclovir [Valtrex] 1 gram tablet 1,000 mg PO TID 7 Days Qty: 21 0RF lidocaine HCl [Lidocaine Viscous] 2 % solution 10 ml mucous membrane QID PRN (Reason: pain) Qty: 400 0RF Rx Instructions: Dispense quantity sufficient for 7 days prednisone 20 mg tablet 40 mg PO DAILY 5 Days Qty: 10 0RF gabapentin 300 mg capsule 300 mg PO BID buprenorphine-naloxone 12-3 mg film 15 mg sublingual DAILY ketoconazole 2 % cream topical mirtazapine 15 mg tablet 15 mg PO BEDTIME citalopram 10 mg tablet 10 mg PO QAM cyclosporine [Restasis] 0.05 % dropperette 1 drp ophthalmic (eye) BID buspirone 5 mg tablet 5 mg PO BID nicotine 14 mg/24 hr patch 24 hour 1 patch topical DAILY sucralfate 1 gram tablet 1 g PO QID docusate sodium 100 mg capsule 100 mg PO DAILY pilocarpine HCl 5 mg tablet 5 mg PO BID Anoro Ellipta 62.5-25 mcg/actuation blister with device 1 ea inhalation DAILY omeprazole 40 mg capsule,delayed release(DR/EC) 40 mg PO DAILY cholecalciferol (vitamin D3) 25 mcg (1,000 unit) tablet 25 mcg PO DAILY albuterol sulfate 90 mcg/actuation HFA aerosol inhaler 2 puff inhalation Q4H PRN (Reason: wheezing) diclofenac sodium 1 % gel 2 g topical BID PRN (Reason: joint pain) ciclopirox 8 % solution topical DAILY divalproex 250 mg tablet,delayed release (DR/EC) See Rx Instructions PO DAILY Rx Instructions: 250mg QAM 500mg QPM orally daily; Referrals: Isaac Patel MD [Primary Care Provider] - Print Language: Senegalese
[2024-04-26 16:50] LABS: Influenza A PCR NEGATIVE (Negative); Influenza B PCR NEGATIVE (Negative); Resp Syncy Virus RNA Qual PCR NEGATIVE (Negative); SARS COV2 PCR INHOUSE NEGATIVE (Negative)
[2024-04-26] MEDS: predniSONE 20 MG TABLET 40 MG PO (16:58)
[2024-04-26 17:43] VITALS: BP 96/43; PULSE 66; RESP 18; TEMP 36.8; O2SAT 97
[2024-04-26] MEDS: Ketorolac Tromethamine 30 MG/ML VIAL IM (17:57)
[2024-04-26 17:59] VITALS: BP 96/43; PULSE 66; RESP 18; TEMP 36.8; O2SAT 97
== END 2024-04-26 18:00 | disposition home or self-care (01) ==
PROVIDERS: Physician Assistant; Emergency Provider Internal Medicine; PCP Internal Medicine
DX: J40 Bronchitis, not specified as acute or chronic (principal); Z03.818 Encounter for observation for suspected exposure to other biological agents ruled out; R05.9 Cough, unspecified; F17.210 Nicotine dependence, cigarettes, uncomplicated; F12.90 Cannabis use, unspecified, uncomplicated; Z86.19 Personal history of other infectious and parasitic diseases
CPT/HCPCS: 0241U; 71046; 96372; 99283; 99284; J1885